=== PATIENT | female | born 1950 | race Caucasian/White ===

== ENCOUNTER → 2019-09-28 11:05 | Outpatient (BNVA) | payer MEDICARE, SELFPAY | PROVIDERS: Family Provider Nurse Practitioner Family; PCP Nurse Practitioner Family; Visit Provider Nurse Practitioner Family | DX: R35.0 Frequency of micturition (principal); N30.01 Acute cystitis with hematuria | CPT/HCPCS: 81003 ==

== ENCOUNTER → 2020-03-06 15:16 | Outpatient (BNVA) | payer MEDICARE, SELFPAY | PROVIDERS: Family Provider Nurse Practitioner Family; PCP Nurse Practitioner Family; Visit Provider Nurse Practitioner Family | DX: M81.0 Age-related osteoporosis without current pathological fracture (principal) | CPT/HCPCS: 36415; 82310 ==

== ENCOUNTER → 2020-03-28 09:40 | Outpatient (BNVA) | payer MEDICARE, SELFPAY | PROVIDERS: Family Provider Nurse Practitioner Family; PCP Nurse Practitioner Family; Visit Provider Nurse Practitioner Family | DX: R30.0 Dysuria (principal); R82.90 Unspecified abnormal findings in urine; N30.01 Acute cystitis with hematuria | CPT/HCPCS: 80053; 81000; 87077; 87086; 87186 ==

== ENCOUNTER → 2020-04-05 08:57 | Outpatient (BNVA) | payer MEDICARE, SELFPAY | PROVIDERS: Family Provider Nurse Practitioner Family; PCP Nurse Practitioner Family; Visit Provider Nurse Practitioner Family | DX: I73.9 Peripheral vascular disease, unspecified (principal); E78.5 Hyperlipidemia, unspecified; I63.9 Cerebral infarction, unspecified; M81.0 Age-related osteoporosis without current pathological fracture | CPT/HCPCS: 80053; 80061; 85025 ==

== ENCOUNTER → 2020-06-08 09:56 | Outpatient (BNVA) | payer SELFPAY | PROVIDERS: Family Provider Nurse Practitioner Family; PCP Nurse Practitioner Family; Visit Provider Nurse Practitioner Family | DX: R30.0 Dysuria (principal); N30.01 Acute cystitis with hematuria | CPT/HCPCS: 80053; 81000 ==

== ENCOUNTER → 2020-06-28 13:44 | Outpatient (BNVA) | payer SELFPAY | PROVIDERS: Family Provider Nurse Practitioner Family; PCP Nurse Practitioner Family; Visit Provider Nurse Practitioner Family | DX: R30.0 Dysuria (principal); R82.90 Unspecified abnormal findings in urine; N30.01 Acute cystitis with hematuria; Z68.23 Body mass index [BMI] 23.0-23.9, adult | CPT/HCPCS: 80053; 81000; 87077; 87086; 87184 ==

== ENCOUNTER → 2020-07-05 09:39 | Outpatient (BNVA) | payer SELFPAY | PROVIDERS: Family Provider Nurse Practitioner Family; PCP Nurse Practitioner Family; Referring Provider Nurse Practitioner Family; Visit Provider Nurse Practitioner Family | DX: N30.01 Acute cystitis with hematuria (principal) | CPT/HCPCS: 81003 ==

== ENCOUNTER → 2020-10-09 09:48 | Outpatient (BNVA) | payer SELFPAY | PROVIDERS: Family Provider Nurse Practitioner Family; PCP Nurse Practitioner Family; Visit Provider Nurse Practitioner Family | DX: M81.0 Age-related osteoporosis without current pathological fracture (principal) | CPT/HCPCS: 82310 ==

== ENCOUNTER → 2021-04-11 09:53 | Outpatient (BNVA) | payer SELFPAY | PROVIDERS: Family Provider Nurse Practitioner Family; PCP Nurse Practitioner Family; Visit Provider Nurse Practitioner Family | DX: E78.5 Hyperlipidemia, unspecified (principal); I73.9 Peripheral vascular disease, unspecified; M81.0 Age-related osteoporosis without current pathological fracture; Z86.73 Personal history of transient ischemic attack (TIA), and cerebral infarction without residual deficits | CPT/HCPCS: 80053; 80061 ==

== ENCOUNTER 2021-05-02 13:49 | Outpatient (CLI) | payer SELFPAY ==
--- NOTE | 2021-05-02 15:15 | XR_ITS ---
WS: [id number] DEXA (DUAL ENERGY X-RAY ABSORPTIOMETRY) Bone mineral density was performed using a [employer] machine. HISTORY: Z78.0 - Asymptomatic menopausal state COMPARISON: 02/03/2019 Lumbar spine BMD (L1-L4): 1.077 T score: -1.0 Z score: 0.8 Total hip BMD: Left: 0.721 g/cm2. T score: -2.3 Z score: -0.7 Right: 0.701 g/cm2. T score: -2.4 Z score: -0.9 10 year probability of a major osteoporotic fracture is 26%. Compared to the prior study from 02/03/2019. Lumbar spine bone mineral density has increased by 0.6%. Bilateral hips bone mineral density has increased by 3.0%. XR/XR DEXA axial skeleton* [id number] IMPRESSION: OSTEOPENIA based upon the WHO classification for females. Significant increase in bone mineral density within the hips since the prior study.
== END 2021-05-02 13:50 | disposition home or self-care (01) ==
PROVIDERS: PCP Nurse Practitioner Family; Visit Provider Nurse Practitioner Family
DX: Z78.0 Asymptomatic menopausal state (principal); M85.88 Other specified disorders of bone density and structure, other site
CPT/HCPCS: 77080

== ENCOUNTER 2021-07-10 10:09 | Emergency (ER) | payer SELFPAY ==
[2021-07-10 10:15] VITALS: BP 157/86; PULSE 88; RESP 18; TEMP 36.8; O2SAT 100; BMI 22.4
--- NOTE | 2021-07-10 10:42 | ED_ITS ---
Documented by User: ITALIA Osuna 07/10/21 12:27 HPI - Extremity Problem General: Chief complaint: Extremity Problem,Nontraumatic Stated complaint: POSSIBLE BLOOD CLOT IN RLE Time Seen by Provider: 07/10/21 10:15 History of Present Illness: HPI Narrative: Patient arrived via ambulance with complaint of right leg tingling intermittently since last night. Patient has history of DVT and she thought this might be the start of a DVT. She denies any other problems presently. Patient currently on blood thinners and clot inhibitor. MD Complaint: other (Right lower extremety is tingling.) Onset (ago): hour(s) Pain Consistency: intermittent Location: right and lower extremity Severity scale (1-10): 1 Quality: other (Tingling) Radiation: none Relieving factors: nothing Exacerbating factors: nothing Associated symptoms: Reports no associated symptoms; Deny chest pain, fever(s) or rash Review of Systems Const: Denies: fever(s), chills or body aches Eyes: Denies: change in vision or blurry vision ENMT: Denies: throat pain or nasal congestion Card: Denies: chest pain or dyspnea on exertion Resp: Denies: dyspnea, productive cough or non-productive cough GI: Denies: abdominal pain, nausea or vomiting Musc: Reports: extremity pain and other (Right lower extremity has had some tingling and intermittent numbness over ) Skin/Breast: Denies: rash Neuro: Denies: headache(s) Psych: Denies: anxiety or depression Samuel/Lymph: Denies: easy bruising PFSH ED PFSH: Medical History Age-related osteoporosis without current pathological fracture CVA (cerebral vascular accident) History of carotid stenosis History of stroke Hyperlipidemia Surgical History History of bladder surgery History of carpal tunnel surgery History of heart surgery History of hysterectomy Social History Smoking and tobacco status: current every day smoker (3 or 4 a day) cigarettes Packs smoked per day: 0.5 Alcohol intake: never Marital status: Single Current occupational status: retired Physical Exam Const: COMMON NORMALS: no acute distress, average body habitus and patient oriented x3 HENMT: COMMON NORMALS: normocephalic HEAD & SCALP: normal to inspection and normocephalic FACE & SINUS: normal facial exam Eye: COMMON NORMALS: conjunctivae normal GENERAL EYE: appearance normal, both eyes and all related structures CONJUNCTIVA: Yes conjunctivae normal Neck/C-Spine: COMMON NORMALS: no JVD Chest: COMMONS NORMALS: normal inspection of the chest Resp: COMMON NORMALS: normal respiratory effort and clear to auscultation bilaterally AUSCULTATION: clear to auscultation bilaterally Cardio: COMMON NORMALS: no JVD, regular rate and regular rhythm RATE: regular rate RHYTHM: regular rhythm GI: COMMON NORMALS: Normal to inspection, nondistended, normoactive bowel sounds present RECTAL EXAM: No heme positive stool and External hemorrhoid(s) present Extremity: COMMON NORMALS: normal to inspection and full ROM RIGHT LOWER EXTREMITY: Yes lower leg (No erythema, tenderness, swelling. Neurovascular intact.) Neuro: COMMON NORMALS: patient oriented x3 Course Vital Signs: Vital signs: Vital Signs Temperature 98.6 F 07/10/21 12:25 Pulse Rate 73 07/10/21 12:25 Respiratory Rate 17 07/10/21 12:25 Blood Pressure 138/58 07/10/21 12:25 Pulse Oximetry 92 07/10/21 12:25 MDM - Extremity (Nontraumatic) MDM Narrative: Medical decision making narrative: Patient presents via ambulance with complaint of right foot numbness tingling been going on since last night and concerned about a blood clot. Patient currently on blood thinners and Plavix. Patient's exam of right lower extremity showed good distal neurovascular status no evidence of a blood clot with no redness swelling or tenderness to the calf or the leg. Patient does have a history neuropathy and she is taking gabapentin for that. Labs found that she was anemic and further testing revealed that she has iron deficiency. Guaiac stool was negative for blood. Patient has no history of bleeding disorder or vomiting blood or passing black tarry stools. Patient is diabetic and states she was not aware she is diabetic and does not check her blood sugars. In all she showed 4+ sugar in her urine her blood glucose was normal. Patient is currently on Farxiga daily for her diabetes. Care and case was discussed with Dr. Cedeno. Patient is discharged from the ER with strict instructions to follow-up with her primary care provider in an next week or 2 Lab Data: Labs: Lab Results 07/10/21 07/10/21 07/10/21 10:52 10:52 10:52 WBC 8.0 10^3/uL 10^3/ uL (4.0-10.0) RBC 2.93 10^6/uL L 10 ^6/uL (4.1-5.3) Hgb 9.3 g/dL L g/dL (11.5-15.3) Hct 29.9 % L % (37.0-47.0) MCV 102.0 fl H fl (81-99) MCH 31.7 pg pg (28.0-34.0) MCHC 31.1 g/dL g/dL (30.0-36.0) RDW 14.8 % % (12.1-15.1) Plt Count 254 10^3/cmm 10^3 /cmm (130-400) MPV 10.0 fL fL (7.4-10.4) Neut % (Auto) 62.4 % % Lymph % (Auto) 30.3 % % [place] % (Auto) 5.9 % % Eos % (Auto) 0.4 % % Baso % (Auto) 0.6 % % Neut # (Auto) 4.98 10^3/uL 10^3 /uL (1.8-7.7) Lymph # (Auto) 2.4 10^3/uL 10^3/ uL (0.8-4.8) [place] # (Auto) 0.5 10^3/uL 10^3/ uL (0.2-0.9) Eos # (Auto) 0.0 10^3/uL 10^3/ uL (0.0-0.8) Baso # (Auto) 0.1 10^3/uL 10^3/ uL (0.0-0.1) Nucleated RBC % (a uto) 0 % % Nucleated RBCs # 0.0 /100WBC /100W BC PT INR Sodium Cancelled 132 mmol/L L mmol /L (136-145) Potassium Cancelled 4.2 mmol/L mmol/L (3.5-5.1) Chloride Cancelled 101 mmol/L mmol/L (98-107) Carbon Dioxide Cancelled 21 mmol/L L mmol/ L (22-29) Anion Gap Cancelled 14.2 (5-19) BUN Cancelled 11 mg/dL mg/dL (8-23) Creatinine Cancelled 1.1 mg/dL H mg/dL (0.5-0.9) GFR Calculation Cancelled 49.1 mL/min L mL/ min (90-130) Glucose Cancelled 89 mg/dL mg/dL (65-115) Calculated Osmolal ity Cancelled 273 mOsm/kg L mOs m/kg (285-295) Calcium Cancelled 9.3 mg/dL mg/dL (8.5-10.5) Iron TIBC % Saturation Unsat Iron Binding Ferritin Total Bilirubin 0.2 mg/dL mg/dL (0.15-1.2) AST 14 U/L U/L (0-32) ALT 9 U/L U/L (0-33) Alkaline Phosphata se 47 IU/L IU/L (35-105) Total Protein 6.7 g/dL g/dL (6.6-8.7) Albumin 4.0 g/dL g/dL (3.5-5.2) Globulin 2.7 g/dL g/dL (1.3-4.6) Urine Color Urine Appearance Urine pH Ur Specific Gravit y Urine Protein Urine Glucose (UA) Urine Ketones Urine Blood Urine Nitrate Urine Bilirubin Urine Urobilinogen Ur Leukocyte Brittany ase Urine RBC Urine WBC Ur Squamous Epith Cells Amorphous Sediment Urine Bacteria Urine Mucus 07/10/21 07/10/21 07/10/21 10:52 11:24 11:25 WBC RBC Hgb Hct MCV MCH MCHC RDW Plt Count MPV Neut % (Auto) Lymph % (Auto) [place] % (Auto) Eos % (Auto) Baso % (Auto) Neut # (Auto) Lymph # (Auto) [place] # (Auto) Eos # (Auto) Baso # (Auto) Nucleated RBC % (a uto) Nucleated RBCs # PT 14.40 SECONDS SEC ONDS (12.1-14.9) INR 1.09 (0.8-1.2) Sodium Potassium Chloride Carbon Dioxide Anion Gap BUN Creatinine GFR Calculation Glucose Calculated Osmolal ity Calcium Iron 21 ug/dL L ug/dL (37-145) TIBC 358 mcg/dl mcg/dl % Saturation 5.8 % L % (20-50) Unsat Iron Binding 337 ug/dL ug/dL (112-347) Ferritin 16 ng/mL ng/mL (15-150) Total Bilirubin AST ALT Alkaline Phosphata se Total Protein Albumin Globulin Urine Color Straw (Yellow) Urine Appearance Clear (CLEAR) Urine pH 5 (5-7) Ur Specific Gravit y 1.005 (1.005-1.030) Urine Protein Neg (Negative) Urine Glucose (UA) 4+ H (Normal) Urine Ketones Negative (Negative) Urine Blood Neg (Negative) Urine Nitrate Negative (Negative) Urine Bilirubin Neg (Negative) Urine Urobilinogen Norm mg/dL mg/dL (Negative) Ur Leukocyte Brittany ase Trace H (Negative) Urine RBC None /hpf /hpf (0-2) Urine WBC 10-15 /hpf H /hpf (0-5) Ur Squamous Epith Cells 10-15 /hpf H /hpf (0-5) Amorphous Sediment Not Reportable Urine Bacteria 1+ /hpf H /hpf (NONE) Urine Mucus Trace /hpf /hpf Discharge Plan Discharge Patient Disposition: Home Clinical Impression: Diabetic neuropathy Qualifiers: Diabetes mellitus type: type 2 Diabetes mellitus complication detail: diabetic polyneuropathy Qualified Code(s): E11.42 - Type 2 diabetes mellitus with diabetic polyneuropathy Anemia Qualifiers: Anemia type: iron deficiency Iron deficiency anemia type: unspecified iron deficiency Qualified Code(s): D50.9 - Iron deficiency anemia, unspecified Condition: Stable Prescriptions: New Feosol 325 mg (65 mg iron) tablet 325 mg PO DAILY Qty: 30 RF: 0 No Action meclizine 25 mg tablet 25 mg PO DAILY PRN (Reason: Dizziness) RF: 0 Eliquis 5 mg tablet 5 mg PO BID RF: 0 gabapentin 300 mg Capsule 300 mg PO TID PRN (Reason: Pain) RF: 0 oxycodone 5 mg tablet 5 mg PO Q4H PRN (Reason: Pain) RF: 0 clopidogrel 75 mg tablet 75 mg PO QAM RF: 0 amitriptyline 100 mg tablet 100 mg PO BEDTIME RF: 0 Crestor 40 mg tablet 40 mg PO BEDTIME RF: 0 Prolia 60 mg/mL syringe 60 mg SUBCUT .EVERY 6 MONTHS RF: 0 Farxiga 10 mg tablet 10 mg PO QAM RF: 0 Discharge Orders: Discharge ED (Routine); Ordered 07/10/21 Ordered By: Mainor Galaviz Referrals: Janeen Aj NP [Primary Care Provider] - Discharge Diet: As Directed Discharge Activity: Increase activity as tolerated Patient Instructions: Diabetic Peripheral Neuropathy (ED), Anemia (ED) Activity Restrictions/Additional Instructions: Follow-up with medical provider as directed. Take medications as prescribed. Return to the ER or your medical provider if condition worsens. Please read and understand discharge instructions. If any questions ask please. Please follow- up with your primary care provider and have further lab studies done to check on your anemia. Coding Level of Care Code ED Manager Product Design for Chg Fwd Exam Comprehensive Documented by User: Ever Sexton MD 07/11/21 23:02 HPI - Extremity Problem General: Chief complaint: Extremity Problem,Nontraumatic Stated complaint: POSSIBLE BLOOD CLOT IN RLE Time Seen by Provider: 07/10/21 10:15 PFSH ED PFSH: Medical History Age-related osteoporosis without current pathological fracture CVA (cerebral vascular accident) History of carotid stenosis History of stroke Hyperlipidemia Surgical History History of bladder surgery History of carpal tunnel surgery History of heart surgery History of hysterectomy Social History Smoking and tobacco status: current every day smoker (3 or 4 a day) cigarettes Packs smoked per day: 0.5 Alcohol intake: never Marital status: Single Current occupational status: retired Course Vital Signs: Vital signs: Vital Signs Temperature 98.6 F 07/10/21 12:25 Pulse Rate 73 07/10/21 12:25 Respiratory Rate 17 07/10/21 12:25 Blood Pressure 138/58 07/10/21 12:25 Pulse Oximetry 92 07/10/21 12:25 MDM - Extremity (Nontraumatic) MDM Narrative: Medical decision making narrative: I discussed this case with Mainor Sexton MD Emergency Medicine Lab Data: Labs: Lab Results 07/10/21 07/10/21 07/10/21 10:52 10:52 10:52 WBC 8.0 10^3/uL 10^3/ uL (4.0-10.0) RBC 2.93 10^6/uL L 10 ^6/uL (4.1-5.3) Hgb 9.3 g/dL L g/dL (11.5-15.3) Hct 29.9 % L % (37.0-47.0) MCV 102.0 fl H fl (81-99) MCH 31.7 pg pg (28.0-34.0) MCHC 31.1 g/dL g/dL (30.0-36.0) RDW 14.8 % % (12.1-15.1) Plt Count 254 10^3/cmm 10^3 /cmm (130-400) MPV 10.0 fL fL (7.4-10.4) Neut % (Auto) 62.4 % % Lymph % (Auto) 30.3 % % [place] % (Auto) 5.9 % % Eos % (Auto) 0.4 % % Baso % (Auto) 0.6 % % Neut # (Auto) 4.98 10^3/uL 10^3 /uL (1.8-7.7) Lymph # (Auto) 2.4 10^3/uL 10^3/ uL (0.8-4.8) [place] # (Auto) 0.5 10^3/uL 10^3/ uL (0.2-0.9) Eos # (Auto) 0.0 10^3/uL 10^3/ uL (0.0-0.8) Baso # (Auto) 0.1 10^3/uL 10^3/ uL (0.0-0.1) Nucleated RBC % (a uto) 0 % % Nucleated RBCs # 0.0 /100WBC /100W BC PT INR Sodium Cancelled 132 mmol/L L mmol /L (136-145) Potassium Cancelled 4.2 mmol/L mmol/L (3.5-5.1) Chloride Cancelled 101 mmol/L mmol/L (98-107) Carbon Dioxide Cancelled 21 mmol/L L mmol/ L (22-29) Anion Gap Cancelled 14.2 (5-19) BUN Cancelled 11 mg/dL mg/dL (8-23) Creatinine Cancelled 1.1 mg/dL H mg/dL (0.5-0.9) GFR Calculation Cancelled 49.1 mL/min L mL/ min (90-130) Glucose Cancelled 89 mg/dL mg/dL (65-115) Calculated Osmolal ity Cancelled 273 mOsm/kg L mOs m/kg (285-295) Calcium Cancelled 9.3 mg/dL mg/dL (8.5-10.5) Iron TIBC % Saturation Unsat Iron Binding Ferritin Total Bilirubin 0.2 mg/dL mg/dL (0.15-1.2) AST 14 U/L U/L (0-32) ALT 9 U/L U/L (0-33) Alkaline Phosphata se 47 IU/L IU/L (35-105) Total Protein 6.7 g/dL g/dL (6.6-8.7) Albumin 4.0 g/dL g/dL (3.5-5.2) Globulin 2.7 g/dL g/dL (1.3-4.6) Urine Color Urine Appearance Urine pH Ur Specific Gravit y Urine Protein Urine Glucose (UA) Urine Ketones Urine Blood Urine Nitrate Urine Bilirubin Urine Urobilinogen Ur Leukocyte Brittany ase Urine RBC Urine WBC Ur Squamous Epith Cells Amorphous Sediment Urine Bacteria Urine Mucus 07/10/21 07/10/21 07/10/21 10:52 11:24 11:25 WBC RBC Hgb Hct MCV MCH MCHC RDW Plt Count MPV Neut % (Auto) Lymph % (Auto) [place] % (Auto) Eos % (Auto) Baso % (Auto) Neut # (Auto) Lymph # (Auto) [place] # (Auto) Eos # (Auto) Baso # (Auto) Nucleated RBC % (a uto) Nucleated RBCs # PT 14.40 SECONDS SEC ONDS (12.1-14.9) INR 1.09 (0.8-1.2) Sodium Potassium Chloride Carbon Dioxide Anion Gap BUN Creatinine GFR Calculation Glucose Calculated Osmolal ity Calcium Iron 21 ug/dL L ug/dL (37-145) TIBC 358 mcg/dl mcg/dl % Saturation 5.8 % L % (20-50) Unsat Iron Binding 337 ug/dL ug/dL (112-347) Ferritin 16 ng/mL ng/mL (15-150) Total Bilirubin AST ALT Alkaline Phosphata se Total Protein Albumin Globulin Urine Color Straw (Yellow) Urine Appearance Clear (CLEAR) Urine pH 5 (5-7) Ur Specific Gravit y 1.005 (1.005-1.030) Urine Protein Neg (Negative) Urine Glucose (UA) 4+ H (Normal) Urine Ketones Negative (Negative) Urine Blood Neg (Negative) Urine Nitrate Negative (Negative) Urine Bilirubin Neg (Negative) Urine Urobilinogen Norm mg/dL mg/dL (Negative) Ur Leukocyte Brittany ase Trace H (Negative) Urine RBC None /hpf /hpf (0-2) Urine WBC 10-15 /hpf H /hpf (0-5) Ur Squamous Epith Cells 10-15 /hpf H /hpf (0-5) Amorphous Sediment Not Reportable Urine Bacteria 1+ /hpf H /hpf (NONE) Urine Mucus Trace /hpf /hpf Discharge Plan Discharge Patient Disposition: Home Clinical Impression: Diabetic neuropathy Qualifiers: Diabetes mellitus type: type 2 Diabetes mellitus complication detail: diabetic polyneuropathy Qualified Code(s): E11.42 - Type 2 diabetes mellitus with diabetic polyneuropathy Anemia Qualifiers: Anemia type: iron deficiency Iron deficiency anemia type: unspecified iron deficiency Qualified Code(s): D50.9 - Iron deficiency anemia, unspecified Condition: Stable Prescriptions: New Feosol 325 mg (65 mg iron) tablet 325 mg PO DAILY Qty: 30 RF: 0 No Action meclizine 25 mg tablet 25 mg PO DAILY PRN (Reason: Dizziness) RF: 0 Eliquis 5 mg tablet 5 mg PO BID RF: 0 gabapentin 300 mg Capsule 300 mg PO TID PRN (Reason: Pain) RF: 0 oxycodone 5 mg tablet 5 mg PO Q4H PRN (Reason: Pain) RF: 0 clopidogrel 75 mg tablet 75 mg PO QAM RF: 0 amitriptyline 100 mg tablet 100 mg PO BEDTIME RF: 0 Crestor 40 mg tablet 40 mg PO BEDTIME RF: 0 Prolia 60 mg/mL syringe 60 mg SUBCUT .EVERY 6 MONTHS RF: 0 Farxiga 10 mg tablet 10 mg PO QAM RF: 0 Discharge Orders: Discharge ED (Routine); Ordered 07/10/21 Ordered By: Mainor Galaviz Referrals: Janeen Aj NP [Primary Care Provider] - Discharge Diet: As Directed Discharge Activity: Increase activity as tolerated Patient Instructions: Diabetic Peripheral Neuropathy (ED), Anemia (ED) Activity Restrictions/Additional Instructions: Follow-up with medical provider as directed. Take medications as prescribed. Return to the ER or your medical provider if condition worsens. Please read and understand discharge instructions. If any questions ask please. Please follow- up with your primary care provider and have further lab studies done to check on your anemia. Coding Level of Care Code ED Manager Product Design for Chg Fwd Exam Comprehensive
[2021-07-10 10:44] VITALS: BP 146/56; PULSE 73; RESP 17; TEMP 36.8; O2SAT 98
[2021-07-10 11:04] LABS: Basophils # 0.1 10^3/uL (0.0-0.1); Basophils % 0.6 %; Eosinophils % 0.4 %; Hematocrit 29.9 % (37.0-47.0); Hemoglobin 9.3 g/dL (11.5-15.3); Lymphocytes # 2.4 10^3/uL (0.8-4.8); Lymphocytes % 30.3 %; Mean Corpuscular HGB Conc 31.1 g/dL (30.0-36.0); Mean Corpuscular Hemoglobin 31.7 pg (28.0-34.0); Monocytes # 0.5 10^3/uL (0.2-0.9); Monocytes % 5.9 %; Neutrophils # 4.98 10^3/uL (1.8-7.7); Neutrophils % 62.4 %; Nucleated Red Blood Cells % 0 %; Platelet Count 254 10^3/cmm (130-400); Red Blood Count 2.93 10^6/uL (4.1-5.3); Red Cell Distribution Width 14.8 % (12.1-15.1)
[2021-07-10 11:40] LABS: Add Urine Microscopic? YES; Bilirubin Urine Neg (Negative); Blood Urine Neg (Negative); Glucose Urine UA 4+ (Normal); Ketones Urine Negative (Negative); Leukocyte Esterase Urine Trace (Negative); Nitrate Urine Negative (Negative); Protein Urine Neg (Negative); Specific Gravity, Urine 1.005 (1.005-1.030); Urine Appearance Clear (CLEAR); Urine Color Straw (Yellow); Urobilinogen Urine Norm (Negative); pH Urine 5 (5-7)
[2021-07-10 11:42] LABS: Alanine Aminotransferase 9 U/L (0-33); Alkaline Phosphatase 47 IU/L (35-105); Anion Gap 14.2 (5-19); Aspartate Amino Transferase 14 U/L (0-32); Blood Urea Nitrogen 11 mg/dL (8-23); Calcium 9.3 mg/dL (8.5-10.5); Carbon Dioxide 21 mmol/L (22-29); Chloride 101 mmol/L (98-107); Globulin 2.7 g/dL (1.3-4.6); Glomerular Filtration Rate 49.1 mL/min (90-130); Glucose 89 mg/dL (65-115); Osmolality Calculated 273 mOsm/kg (285-295); Potassium 4.2 mmol/L (3.5-5.1); Sodium 132 mmol/L (136-145); Total Bilirubin 0.2 mg/dL (0.15-1.2); Total Protein 6.7 g/dL (6.6-8.7)
[2021-07-10 11:53] LABS: Add Urine Culture? No; Bacteria Urine 1+ /hpf; Mucus Urine TRACE /hpf
[2021-07-10 12:03] LABS: INR 1.09 (0.8-1.2)
[2021-07-10 12:04] LABS: Ferritin 16 ng/mL (15-150); Iron 21 ug/dL (37-145); Percent Saturation 5.8 % (20-50); Total Iron Binding Capacity 358 mcg/dl; Unsaturated Iron Binding 337 ug/dL (112-347)
[2021-07-10 12:25] VITALS: BP 138/58; PULSE 73; RESP 17; TEMP 37; O2SAT 92
== END 2021-07-10 12:27 | disposition home or self-care (01) ==
PROVIDERS: Emergency Provider Nurse Practitioner Family; PCP Nurse Practitioner Family
DX: E11.42 Type 2 diabetes mellitus with diabetic polyneuropathy (principal); D50.9 Iron deficiency anemia, unspecified; E78.5 Hyperlipidemia, unspecified; F17.210 Nicotine dependence, cigarettes, uncomplicated; M81.0 Age-related osteoporosis without current pathological fracture; Z79.01 Long term (current) use of anticoagulants; Z79.02 Long term (current) use of antithrombotics/antiplatelets; Z79.84 Long term (current) use of oral hypoglycemic drugs; Z79.899 Other long term (current) drug therapy; Z86.73 Personal history of transient ischemic attack (TIA), and cerebral infarction without residual deficits
CPT/HCPCS: 80053; 81001; 82728; 83540; 83550; 85025; 85610; 99283

== ENCOUNTER → 2021-07-17 09:39 | Outpatient (BNVA) | payer SELFPAY | PROVIDERS: PCP Nurse Practitioner Family; Visit Provider Nurse Practitioner Family | DX: R30.0 Dysuria (principal) | CPT/HCPCS: 81000 ==

== ENCOUNTER 2021-08-05 16:25 | Emergency (ER) | payer SELFPAY ==
[2021-08-05 17:02] VITALS: BP 179/73; PULSE 73; RESP 16; TEMP 36.8; O2SAT 99; BMI 22.8
--- NOTE | 2021-08-05 19:57 | ECG_ITS ---
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
--- NOTE | 2021-08-05 19:58 | USCV_ITS ---
Angela Fontana Age: 71 Gender: F : 1950 Exam Date: 08/05/2021 21:28 Ordering Phys: Randell Thomason MD Technologist: Exam Location: [facility]_ Indication: rt leg pain PROCEDURES: Venous duplex imaging was performed in only the right lower extremity. The following venous structures were evaluated: common femoral vein, profunda vein, proximal portion of the greater saphenous vein, superficial femoral vein, and the popliteal vein. In addition, the posterior tibial and peroneal trunk were evaluated. On the right side, the common femoral, superficial femoral, profunda femoral, popliteal, posterior tibial, greater saphenous veins and the peroneal trunk were identified and interrogated in the standard fashion. These veins were found to be easily compressible with spontaneous blood flow. No evidence of insufficiency or thrombus noted. FINDINGS: Normal 2-D Doppler and augmentation and compressibility throughout the lower extremity venous structures. Additional imaging through the proximal calf veins also reveals no thrombus. Limited evaluation of the greater saphenous vein is patent with no thrombus.. The veins were found to be easily compressible with spontaneous blood flow. Non pulsatile flow pattern. CONCLUSIONS No evidence of DVT in the above-mentioned identifiable veins. Dr Hanna Alvarez MD [facility] (Electronically Signed) Final Date: 08 August 2021 08:51 S
--- NOTE | 2021-08-05 20:08 | W.ED.GENADLT ---
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 Patient tells me that she was sitting down earlier today around 11 AM when she attempted to stand up and felt very lightheaded and nearly passed out. Patient denies any LOC, chest pain, associate shortness of breath, or palpitation or lightheadedness. Shortly after patient took her first step and all noticed that her right leg gave way. Patient denies any fall or injury. Patient was able to catch herself prior to the fall. Patient denies twisting her ankle or focal complaints of pain. Patient denies any lower extremity swelling, numbness, tingling sensation. Patient has not had a prior episode of feeling her right leg gave out. Patient is compliant with her anticoagulation, does not think she has a blood clot in her right leg. Patient has no other episodes of lightheadedness in the last few days. Patient denies any diarrhea, melena/hematochezia, signs of dehydration, decreased p.o. intake, or diarrhea Onset: 11am Duration:once Location:home Severity:moderate Review of Systems Narrative: Constitutional: No fever, no chills. HEENT: No vision changes CV: No chest pain, no palpitations PULM: no cough, no dyspnea. GI: No abdominal pain, no N/V/D. : No dysuria MSKEL: No muscle pain, +R leg giving out SKIN: No new rashes, no lesions. NEURO: No headache, no focal weakness. +light-headednes HEME: No visible bruises PSYCH: Normal mood PFSH ED PFSH: Medical History Age-related osteoporosis without current pathological fracture CVA (cerebral vascular accident) History of carotid stenosis History of stroke Hyperlipidemia Surgical History History of bladder surgery History of carpal tunnel surgery History of heart surgery History of hysterectomy Social History (Updated 07/17/21 @ 09:53 by Chula Johnson LPN) Smoking and tobacco status: current every day smoker (not daily) cigarettes Alcohol intake: never Marital status: Single Current occupational status: retired Physical Exam Narrative: EXAM NARRATIVE: Head: Atraumatic Eyes: PERRL, conjunctiva without injection ENT: Mucous membrane moist NECK: Supple, ROM intact LUNGS: LCTAB, no crackles/rhonchi CV: RRR ABDOMEN: Soft, nontender in all quadrants EXTREMITY: Normal ROM, + no compartment tightness, and the right tib-fib, no Homans' sign, 2+ DP/DP pulses on the right side, no focal tenderness palpation the right lower extremity, cap refill less than 3 seconds, sensation intact in the right lower extremity SKIN: No rash or erythema NEURO: A&O x 3. Sensation intact. Motor strength 5/5 all extremeties. Kcikgh-ix-uwed intact. No pronator drift. Normal gait w/o ataxia. No nystagmus noted. CN 2-12 intact as follows: CN2: VIsion intact, pupils equal, bilaterally reactive to light CN3: EOMI CN4: Down and lateral EOMI CN5: V1,V2,V3 w/ sensation intact to LT CN6: Lateral eye movements intact CN7: Symetric smile CN8: Pt hears finger rubbing equally b/l CN9/10: Pt elevates posterior palate equally. No uvular deviation CN11: Shoulder shrug w/ 5/5 strength b/l CN12: Tongue protrudes equally and mobile bidrectionally ======= Mental status? Awake, alert, and oriented to self, year, month, location, and situation.? Following simple axial and appendicular commands.? Has appropriate fund of knowledge, comprehension, and insight.? Able to recall and understands pertinent aspects of medical history and current treatment status.? ? Language? Speech is fluent without word-finding difficulties.? Intact naming, expression, entry level receptionist, and repetition.? ? Cranial nerves? 2,3,4,6: PERRL, EOMI with no nystagmus. 5: Intact sensation to light touch, symmetric? 7: Smile symmetrical, no facial droop.? 8: Hearing grossly intact.? 9,10: Normal palate movement.? 11: Normal strength in trapezius bilaterally 12: Tongue protrudes midline.? ? Motor examination? Normal bulk & tone. Strength as follows (R/L): Delts (5/5), Biceps (5/5), Triceps (5/5), Wrist ext (5/5), hip flexors (5/5), plantarflexors (5/5), dorsiflexors (5/5). ? Sensation? Light Touch: Grossly intact and equal in upper and lower extremities bilaterally? Romberg: Negative.? Distal joint position sense intact ? Coordination? Hmgovy-yy-bbhl-finger movements intact without dysmetria or past-pointing.? Rapid fingertaps: preserved amplitude without decriment.? No tremor, myoclonus or truncal ataxia.? ? Gait/stance? Steady, normal narrow base gait with appropriate arm swing and turning.? Tandem gait without hesitation or loss of balance. PSYCH: Normal mood and affect Course Vital Signs: Vital signs: Vital Signs Temperature 98.3 F 08/05/21 17:02 Pulse Rate 70 08/05/21 23:13 Respiratory Rate 14 08/05/21 23:13 Blood Pressure 170/96 08/05/21 23:13 Pulse Oximetry 96 08/05/21 23:13 [facility] - General Adult Lab Data: Labs: Lab Results 08/05/21 08/05/21 08/05/21 20:57 20:57 20:57 WBC 7.3 10^3/uL 10^3/ uL (4.0-10.0) RBC 2.47 10^6/uL L 10 ^6/uL (4.1-5.3) Hgb 7.6 g/dL L g/dL (11.5-15.3) Hct 24.7 % L % (37.0-47.0) MCV 100.0 fl H fl (81-99) MCH 30.8 pg pg (28.0-34.0) MCHC 30.8 g/dL g/dL (30.0-36.0) RDW 15.5 % H % (12.1-15.1) Plt Count 244 10^3/cmm 10^3 /cmm (130-400) MPV 10.5 fL H fL (7.4-10.4) Neut % (Auto) 47.5 % % Lymph % (Auto) 44.9 % % [place] % (Auto) 5.8 % % Eos % (Auto) 1.0 % % Baso % (Auto) 0.5 % % Neut # (Auto) 3.46 10^3/uL 10^3 /uL (1.8-7.7) Lymph # (Auto) 3.3 10^3/uL 10^3/ uL (0.8-4.8) [place] # (Auto) 0.4 10^3/uL 10^3/ uL (0.2-0.9) Eos # (Auto) 0.1 10^3/uL 10^3/ uL (0.0-0.8) Baso # (Auto) 0.0 10^3/uL 10^3/ uL (0.0-0.1) Nucleated RBC % (a uto) 0 % % Nucleated RBCs # 0.0 /100WBC /100W BC Sodium 142 mmol/L mmol/L (136-145) Potassium 3.5 mmol/L mmol/L (3.5-5.1) Chloride 117 mmol/L H mmol /L (98-107) Carbon Dioxide 16 mmol/L L mmol/ L (22-29) Anion Gap 12.5 (5-19) BUN 14 mg/dL mg/dL (8-23) Creatinine 0.9 mg/dL mg/dL (0.5-0.9) GFR Calculation 61.9 mL/min L mL/ min (90-130) Glucose 70 mg/dL mg/dL (65-115) Calculated Osmolal ity 293 mOsm/kg mOsm/ kg (285-295) Calcium 7.6 mg/dL L mg/dL (8.5-10.5) Troponin T Gen 5 n g/L 12 ng/L H ng/L (0-10) 08/05/21 23:02 WBC RBC Hgb Hct MCV MCH MCHC RDW Plt Count MPV Neut % (Auto) Lymph % (Auto) [place] % (Auto) Eos % (Auto) Baso % (Auto) Neut # (Auto) Lymph # (Auto) [place] # (Auto) Eos # (Auto) Baso # (Auto) Nucleated RBC % (a uto) Nucleated RBCs # Sodium Potassium Chloride Carbon Dioxide Anion Gap BUN Creatinine GFR Calculation Glucose Calculated Osmolal ity Calcium Troponin T Gen 5 n g/L 14 ng/L H ng/L (0-10) Discharge Plan Discharge Patient Disposition: Home Clinical Impression: Light headedness, Anemia Condition: Stable Prescriptions: No Action meclizine 25 mg tablet 25 mg PO DAILY PRN (Reason: Dizziness) RF: 0 Eliquis 5 mg tablet 5 mg PO BID RF: 0 amitriptyline 100 mg tablet 100 mg PO BEDTIME Qty: 90 RF: 3 gabapentin 300 mg Capsule 300 mg PO TID PRN (Reason: Pain) RF: 0 oxycodone 5 mg tablet 5 mg PO Q4H PRN (Reason: Pain) RF: 0 clopidogrel 75 mg tablet 75 mg PO QAM RF: 0 Crestor 40 mg tablet 40 mg PO BEDTIME RF: 0 Prolia 60 mg/mL syringe 60 mg SUBCUT .EVERY 6 MONTHS RF: 0 Farxiga 10 mg tablet 10 mg PO QAM RF: 0 Feosol 325 mg (65 mg iron) tablet 325 mg PO DAILY Qty: 30 RF: 0 Discharge Orders: Discharge ED (Routine); Ordered 08/05/21 Ordered By: Tony Becerra Referrals: Janeen Aj LEAD OPERATOR [Primary Care Provider] - Discharge Diet: Advance as tolerated Discharge Activity: Resume usual activity Patient Instructions: Lightheadedness (ED) Activity Restrictions/Additional Instructions: Come back to the emergency room for further episodes of lightheadedness, fever chills, chest pain/ dyspnea, pain, or any new concerning complaints. Follow up with your primary doctor by friday for a repeat blood count, as your blood count is a bit low. Coding Level of Care Code ED Head Of English for Chg Fwd Documented by User: Tony Becerra DO 08/05/21 23:53 HPI - General Adult General: Chief complaint: Dizziness Stated complaint: DIZZY Time Seen by Provider: 08/05/21 19:38 PFSH ED PFSH: Medical History Age-related osteoporosis without current pathological fracture CVA (cerebral vascular accident) History of carotid stenosis History of stroke Hyperlipidemia Surgical History History of bladder surgery History of carpal tunnel surgery History of heart surgery History of hysterectomy Social History (Updated 07/17/21 @ 09:53 by Chula Johnson LPN) Smoking and tobacco status: current every day smoker (not daily) cigarettes Alcohol intake: never Marital status: Single Current occupational status: retired Course Vital Signs: Vital signs: Vital Signs Temperature 98.3 F 08/05/21 17:02 Pulse Rate 70 08/05/21 23:13 Respiratory Rate 14 08/05/21 23:13 Blood Pressure 170/96 08/05/21 23:13 Pulse Oximetry 96 08/05/21 23:13 MDM - General Adult MDM Narrative: Medical decision making narrative: Pt checked out to me by Dr. Thomason at shift change for delta troponin. Delta is only 2. Pts Hb is 7.6 which is a significant drop. She will need to have that rechecked in a couple of days. She is given a liter of fluid with some improvement. Stool occult blood negative. Bicarb level low, so could be dehydration. Low extremity doppler neg for dvt. Lab Data: Labs: Lab Results 08/05/21 08/05/21 08/05/21 20:57 20:57 20:57 WBC 7.3 10^3/uL 10^3/ uL (4.0-10.0) RBC 2.47 10^6/uL L 10 ^6/uL (4.1-5.3) Hgb 7.6 g/dL L g/dL (11.5-15.3) Hct 24.7 % L % (37.0-47.0) MCV 100.0 fl H fl (81-99) MCH 30.8 pg pg (28.0-34.0) MCHC 30.8 g/dL g/dL (30.0-36.0) RDW 15.5 % H % (12.1-15.1) Plt Count 244 10^3/cmm 10^3 /cmm (130-400) MPV 10.5 fL H fL (7.4-10.4) Neut % (Auto) 47.5 % % Lymph % (Auto) 44.9 % % [place] % (Auto) 5.8 % % Eos % (Auto) 1.0 % % Baso % (Auto) 0.5 % % Neut # (Auto) 3.46 10^3/uL 10^3 /uL (1.8-7.7) Lymph # (Auto) 3.3 10^3/uL 10^3/ uL (0.8-4.8) [place] # (Auto) 0.4 10^3/uL 10^3/ uL (0.2-0.9) Eos # (Auto) 0.1 10^3/uL 10^3/ uL (0.0-0.8) Baso # (Auto) 0.0 10^3/uL 10^3/ uL (0.0-0.1) Nucleated RBC % (a uto) 0 % % Nucleated RBCs # 0.0 /100WBC /100W BC Sodium 142 mmol/L mmol/L (136-145) Potassium 3.5 mmol/L mmol/L (3.5-5.1) Chloride 117 mmol/L H mmol /L (98-107) Carbon Dioxide 16 mmol/L L mmol/ L (22-29) Anion Gap 12.5 (5-19) BUN 14 mg/dL mg/dL (8-23) Creatinine 0.9 mg/dL mg/dL (0.5-0.9) GFR Calculation 61.9 mL/min L mL/ min (90-130) Glucose 70 mg/dL mg/dL (65-115) Calculated Osmolal ity 293 mOsm/kg mOsm/ kg (285-295) Calcium 7.6 mg/dL L mg/dL (8.5-10.5) Troponin T Gen 5 n g/L 12 ng/L H ng/L (0-10) 08/05/21 23:02 WBC RBC Hgb Hct MCV MCH MCHC RDW Plt Count MPV Neut % (Auto) Lymph % (Auto) [place] % (Auto) Eos % (Auto) Baso % (Auto) Neut # (Auto) Lymph # (Auto) [place] # (Auto) Eos # (Auto) Baso # (Auto) Nucleated RBC % (a uto) Nucleated RBCs # Sodium Potassium Chloride Carbon Dioxide Anion Gap BUN Creatinine GFR Calculation Glucose Calculated Osmolal ity Calcium Troponin T Gen 5 n g/L 14 ng/L H ng/L (0-10) Discharge Plan Discharge Patient Disposition: Home Clinical Impression: Light headedness, Anemia Condition: Stable Prescriptions: No Action meclizine 25 mg tablet 25 mg PO DAILY PRN (Reason: Dizziness) RF: 0 Eliquis 5 mg tablet 5 mg PO BID RF: 0 amitriptyline 100 mg tablet 100 mg PO BEDTIME Qty: 90 RF: 3 gabapentin 300 mg Capsule 300 mg PO TID PRN (Reason: Pain) RF: 0 oxycodone 5 mg tablet 5 mg PO Q4H PRN (Reason: Pain) RF: 0 clopidogrel 75 mg tablet 75 mg PO QAM RF: 0 Crestor 40 mg tablet 40 mg PO BEDTIME RF: 0 Prolia 60 mg/mL syringe 60 mg SUBCUT .EVERY 6 MONTHS RF: 0 Farxiga 10 mg tablet 10 mg PO QAM RF: 0 Feosol 325 mg (65 mg iron) tablet 325 mg PO DAILY Qty: 30 RF: 0 Discharge Orders: Discharge ED (Routine); Ordered 08/05/21 Ordered By: Tony Becerra Referrals: Janeen Aj NP [Primary Care Provider] - Discharge Diet: Advance as tolerated Discharge Activity: Resume usual activity Patient Instructions: Lightheadedness (ED) Activity Restrictions/Additional Instructions: Come back to the emergency room for further episodes of lightheadedness, fever chills, chest pain/ dyspnea, pain, or any new concerning complaints. Follow up with your primary doctor by friday for a repeat blood count, as your blood count is a bit low. Coding Level of Care Code ED Head Of English for Irene Hines
[2021-08-05 20:58] VITALS: BP 173/89; PULSE 68; RESP 16; O2SAT 98
[2021-08-05 21:10] LABS: Basophils % 0.5 %; Eosinophils # 0.1 10^3/uL (0.0-0.8); Hematocrit 24.7 % (37.0-47.0); Hemoglobin 7.6 g/dL (11.5-15.3); Lymphocytes # 3.3 10^3/uL (0.8-4.8); Lymphocytes % 44.9 %; Mean Corpuscular HGB Conc 30.8 g/dL (30.0-36.0); Mean Corpuscular Hemoglobin 30.8 pg (28.0-34.0); Mean Platelet Volume 10.5 fL (7.4-10.4); Monocytes # 0.4 10^3/uL (0.2-0.9); Monocytes % 5.8 %; Neutrophils # 3.46 10^3/uL (1.8-7.7); Neutrophils % 47.5 %; Nucleated Red Blood Cells % 0 %; Platelet Count 244 10^3/cmm (130-400); Red Blood Count 2.47 10^6/uL (4.1-5.3); Red Cell Distribution Width 15.5 % (12.1-15.1); White Blood Count 7.3 10^3/uL (4.0-10.0)
[2021-08-05 21:39] LABS: Blood Urea Nitrogen 14 mg/dL (8-23); Calcium 7.6 mg/dL (8.5-10.5); Carbon Dioxide 16 mmol/L (22-29); Chloride 117 mmol/L (98-107); Glomerular Filtration Rate 61.9 mL/min (90-130); Glucose 70 mg/dL (65-115); Osmolality Calculated 293 mOsm/kg (285-295); Sodium 142 mmol/L (136-145)
[2021-08-05 21:48] LABS: Troponin T (5th) Once 12 ng/L (0-10)
[2021-08-05 21:49] LABS: Anion Gap 12.5 (5-19); Potassium 3.5 mmol/L (3.5-5.1)
--- NOTE | 2021-08-05 22:50 | ECG_ITS ---
[facility] Test Date: 2021-08-05 Pat Name: Angela Fontana Department: Room: Gender: Female Inside Trucker: : 1950 Requested By: Randell Thomason Order Number: [id number] Reading MD: SIRISHA SEALS Measurements Intervals [place] Rate: 70 P: 66 NE: 159 QRS: 1 QRSD: 88 T: 64 QT: 382 QTc: 415 Interpretive Statements SINUS RHYTHM WITH MARKED SINUS ARRHYTHMIA SEPTAL MYOCARDIAL INFARCTION , OF INDETERMINATE AGE [40+ ms Q WAVE IN V1/V2] Compared to ECG 08/05/2021 20:09:04 No significant changes Electronically Signed On 08-06-2021 12:57:43 CRATE BUILDER by SIRISHA SEALS [id number]
[2021-08-05] MEDS: sodium chloride 0.9% 1,000 ML 999 ML IV (23:11)
[2021-08-05 23:13] VITALS: BP 170/96; PULSE 70; RESP 14; O2SAT 96
[2021-08-05 23:24] LABS: Troponin T (5th) Once 14 ng/L (0-10)
[2021-08-05 23:57] VITALS: BP 157/80; PULSE 77; RESP 14; O2SAT 97
== END 2021-08-05 23:52 | disposition home or self-care (01) ==
PROVIDERS: Emergency Medicine; Emergency Provider Emergency Medicine; PCP Nurse Practitioner Family
DX: R42 Dizziness and giddiness (principal); D64.9 Anemia, unspecified; Z79.01 Long term (current) use of anticoagulants; Z79.02 Long term (current) use of antithrombotics/antiplatelets; Z86.73 Personal history of transient ischemic attack (TIA), and cerebral infarction without residual deficits; E78.5 Hyperlipidemia, unspecified; F17.210 Nicotine dependence, cigarettes, uncomplicated; M79.604 Pain in right leg
CPT/HCPCS: 36415; 80048; 84484; 85025; 93005; 93971; 96360; 99284; J7030

== ENCOUNTER → 2021-08-08 16:48 | Outpatient (BNVA) | payer SELFPAY | PROVIDERS: PCP Nurse Practitioner Family; Visit Provider Family Medicine | DX: D53.9 Nutritional anemia, unspecified (principal) | CPT/HCPCS: 82607; 82746 ==

== ENCOUNTER → 2021-08-21 13:27 | Outpatient (BNVA) | payer SELFPAY | PROVIDERS: PCP Nurse Practitioner Family; Visit Provider Nurse Practitioner Family | DX: D64.9 Anemia, unspecified (principal); N28.9 Disorder of kidney and ureter, unspecified; R25.2 Cramp and spasm | CPT/HCPCS: 80048; 82272; 85025 ==

== ENCOUNTER 2021-08-28 11:56 | Emergency (ER) | payer SELFPAY ==
--- NOTE | 2021-08-28 12:10 | ECG_ITS ---
[facility] Test Date: 2021-08-28 Pat Name: Angela Fontana Department: Room: Gender: Female Spa Director: : 1950 Requested By: Randell Thomason Order Number: [id number] Reading MD: Ruba Rascon M.D. Measurements Intervals [place] Rate: 73 P: 70 VT: 151 QRS: 63 QRSD: 93 T: 82 QT: 390 QTc: 430 Interpretive Statements SINUS RHYTHM WITH MARKED SINUS ARRHYTHMIA SEPTAL MYOCARDIAL INFARCTION , PROBABLY OLD [40+ ms Q WAVE IN V1/V2] Compared to ECG 08/05/2021 22:40:49 No significant changes Electronically Signed On 08-28-2021 17:53:11 COMMUNITY OUTREACH SPECIALIST by Ruba Rascon M.D. [id number]
--- NOTE | 2021-08-28 12:34 | ED_ITS ---
HPI - General Adult General: Chief complaint: General Medical Stated complaint: DIZZY, WEAK Time Seen by Provider: 08/28/21 12:06 History of Present Illness: HPI narrative: HPI: [71]yo patient w/ hx of DVT on eliquis, recurrent GI bleeding and anemia currently on iron supplementation, CVA, HLD BIBA for complaints of light-headedness while sitting down and watching TV this morning. Patient denies LOC or focal weakness but reports her body feels weak and I could not get up. No prior hx of seizures. Patient denies any prior hx of syncope in the past. Of note, the last 5 days, patient has noticed dark stools. She has been on iron supplementation for 3 months now. No associated symptoms of chest pain, shortness of breath, palpitations or focal weakness right before the incident. Patient was seen and evaluated in the ED on 08/05 at that point int time had a hemoglobin of 7.6. Patient was told for close followup and most recently on 08/21/2021 patient has a hemoglobin of 9.4. Onset: earlier this morning Duration: ongoing Location: home Severity: moderate Review of Systems Narrative: Constitutional: No fever, no chills. +generalized weakness HEENT: No vision changes CV: No chest pain, no palpitations PULM: No productive cough, no dyspnea. GI: No abdominal pain, no N/V/D. : No Dysuria MSKEL: No muscle pain SKIN: No new rashes, no lesions. NEURO: No headache, no focal weakness. +light-headedness HEME: No visible bruises PSYCH: Normal mood PFSH ED PFSH: Medical History Abnormal kidney function Age-related osteoporosis without current pathological fracture CVA (cerebral vascular accident) History of carotid stenosis History of stroke Hyperlipidemia Surgical History History of bladder surgery History of carpal tunnel surgery History of heart surgery History of hysterectomy Social History Alcohol intake: never Marital status: Single Current occupational status: retired Physical Exam Narrative: EXAM NARRATIVE: Head: Atraumatic Eyes: PERRL, conjunctiva without injection, eyes tracking ENT: Mucous membrane moist NECK: Supple without lymphadenopathy LUNGS: LCTAB CV: RRR ABDOMEN: Soft, nontender in all quadrants, no guarding or rebound tenderness, no CVA or flank tenderness bilaterally EXTREMITY: Normal ROM SKIN: No rash or erythema NEURO: Mental status: A/Ox3 CN II-XII tested and intact. Sensation intact to sharp/dull differentiation in all extremities. Motor: Normal tone and bulk. No abnormal movements appreciated. No pronator drift. Strength tested and 5/5 in bilateral wrist flexion/extension, elbow flexion/extension, shoulder abduction, straight leg raise, knee fle xion/extension, ankle dorsiflexion/plantarflexion. Patient ambulates with a steady gait. Coordination: Finger to nose and heel to villalpando testing intact bilaterally. PSYCH: Cooperative mood and affect Course Vital Signs: Vital signs: Vital Signs Temperature 97.9 F 08/28/21 12:59 Pulse Rate 68 08/28/21 15:08 Respiratory Rate 18 08/28/21 15:08 Blood Pressure 149/66 08/28/21 15:08 Pulse Oximetry 97 08/28/21 15:08 MDM - General Adult MDM Narrative: Medical decision making narrative: [71]yo patient w/ hx of CVA, anemia, CAD, HDL, DVT on eliquis presenting to the ED with Syncope. No association with chest pain, dyspnea, palpitations, or focal neurological deficits. HDS Neuro intact. Fingerstick wnl. Given history, exam and workup, presentation not consistent with seizures given a short time course, no postictal state, no seizure activity. Low suspicion for acute neurologic catastrophes to include ICH given lack of trauma, risk factors for bleeding diathesis, or neurogenic causes of syncope. Low suspicion for vascular catastrophes to include PE, thoracic aortic dissection, AAA rupture. Presentation not consistent with acute life threatening arrhythmia, structural heart disease, electrical conduction abnormalities, or ACS. Workup: CBC, CMP, Lipase, UA Intervention: Serial reevaluation, telemetry, PO challenge, 50cc of IVF EKG: No e/o STEMI. No evidence of Brugada?s sign, delta wave, epsilon wave, significantly prolonged QTc, HOCM or malignant arrhythmia. Doubt ACS or other emergent causes of chest pain given normal troponins and EKG findings. Currently chest pain free. [3:45pm] On reassessment, patient denies any syncope or near syncope episodes in the ER. Telemetry without any dysrhythmia. Patient has been able to tolerate PO and ambulate in the ER without issues. Delta troponin <4. I performed shared decision-making with patient regarding admission versus discharge today, and patient prefers to be discharged. I ahve discussed given patient's risk factors that she would better off admitted to the hospital. However, since it [place], patient would like to go home and spentd time with her family. Patient elects to go home and do the stress test on Friday and Friday. I explained the risks of leaving the hospital today including lethal arrythemia, [place], strokens and even . Patient verbalizes understanding of these discussed risk and elect for the alternative of following up earlier next week for evaluation by Cardiology. Patient verbalizes understanding to return for any wor sening symptoms including chest pain, dyspnea, fatigue, arm pain/jaw pain/back pain or any new or concerning issues. Hemoglobin of 9.1 which is consistent with baseline. Patient is currently hemodynamically stabe, ambulated without any difficulties. Disposition: Discharge. Patient is at baseline at this time. Return precautions expressed and understood in person. Advised follow up with a primary care provider or clinic physician in the next 24-48 hours. Given return instructions for any new or concerning symptoms including chest pain, focal neurological deficits, dyspnea, or any new or concerning findings. Lab Data: Labs: Lab Results 08/28/21 08/28/21 08/28/21 12:39 12:52 12:52 WBC 10.2 10^3/uL H 10 ^3/uL (4.0-10.0) RBC 2.86 10^6/uL L 10 ^6/uL (4.1-5.3) Hgb 9.1 g/dL L g/dL (11.5-15.3) Hct 28.7 % L % (37.0-47.0) MCV 100.3 fl H fl (81-99) MCH 31.8 pg pg (28.0-34.0) MCHC 31.7 g/dL g/dL (30.0-36.0) RDW 18.4 % H % (12.1-15.1) Plt Count 273 10^3/cmm 10^3 /cmm (130-400) MPV 10.0 fL fL (7.4-10.4) Neut % (Auto) 71.7 % % Lymph % (Auto) 20.5 % % [place] % (Auto) 6.6 % % Eos % (Auto) 0.3 % % Baso % (Auto) 0.6 % % Neut # (Auto) 7.30 10^3/uL 10^3 /uL (1.8-7.7) Lymph # (Auto) 2.1 10^3/uL 10^3/ uL (0.8-4.8) [place] # (Auto) 0.7 10^3/uL 10^3/ uL (0.2-0.9) Eos # (Auto) 0.0 10^3/uL 10^3/ uL (0.0-0.8) Baso # (Auto) 0.1 10^3/uL 10^3/ uL (0.0-0.1) Nucleated RBC % (a uto) 0 % % Nucleated RBCs # 0.0 /100WBC /100W BC Sodium 136 mmol/L mmol/L (136-145) Potassium 3.7 mmol/L mmol/L (3.5-5.1) Chloride 103 mmol/L mmol/L (98-107) Carbon Dioxide 18 mmol/L L mmol/ L (22-29) Anion Gap 18.7 (5-19) BUN 15 mg/dL mg/dL (8-23) Creatinine 0.9 mg/dL mg/dL (0.5-0.9) GFR Calculation 61.9 mL/min L mL/ min (90-130) Glucose 84 mg/dL mg/dL (65-115) POC Glucose 98 mg/dL mg/dL (70-110) Calculated Osmolal ity 282 mOsm/kg L mOs m/kg (285-295) Calcium 8.5 mg/dL mg/dL (8.5-10.5) Magnesium 1.9 mg/dL mg/dL (1.7-2.3) Troponin T Baselin e Troponin T 120 Min [place] Delta Troponin T 08/28/21 08/28/21 12:52 14:52 WBC RBC Hgb Hct MCV MCH MCHC RDW Plt Count MPV Neut % (Auto) Lymph % (Auto) [place] % (Auto) Eos % (Auto) Baso % (Auto) Neut # (Auto) Lymph # (Auto) [place] # (Auto) Eos # (Auto) Baso # (Auto) Nucleated RBC % (a uto) Nucleated RBCs # Sodium Potassium Chloride Carbon Dioxide Anion Gap BUN Creatinine GFR Calculation Glucose POC Glucose Calculated Osmolal ity Calcium Magnesium Troponin T Baselin e 11 ng/L H ng/L (0-10) Troponin T 120 Min [place] 11.99 ng/L H ng/L (0-10) Delta Troponin T 0.99 ABS# ABS# (0-10) Discharge Plan Discharge Patient Disposition: Home Clinical Impression: Light headedness, Generalized weakness Condition: Stable Prescriptions: No Action Feosol 325 mg (65 mg iron) tablet 325 mg PO BID RF: 0 meclizine 25 mg tablet 25 mg PO BID PRN (Reason: Dizziness) RF: 0 Eliquis 5 mg tablet 5 mg PO BID RF: 0 amitriptyline 100 mg tablet 100 mg PO BEDTIME Qty: 90 RF: 3 gabapentin 300 mg Capsule 300 mg PO TID PRN (Reason: Pain) RF: 0 clopidogrel 75 mg tablet 75 mg PO QAM RF: 0 rosuvastatin [Crestor] 40 mg tablet 40 mg PO BEDTIME RF: 0 Prolia 60 mg/mL syringe 60 mg SUBCUT .EVERY 6 MONTHS RF: 0 Farxiga 10 mg tablet 10 mg PO QAM RF: 0 Tylenol Arthritis 650 mg Tablet Extended Release 650 mg PO Q12H PRN (Reason: Pain) RF: 0 Benadryl Allergy 25 mg Tablet 25 mg PO DAILY PRN (Reason: Allergy Symptoms) RF: 0 ibuprofen 200 mg Tablet 400 - 600 mg PO Q4H PRN (Reason: Pain) RF: 0 Aspercreme (lidocaine HCl) 4 % Liquid Roll-On 1 ea TOPICAL PRN RF: 0 Discharge Orders: Discharge ED (Routine); Ordered 08/28/21 Ordered By: Randell Thomason Referrals: Janeen Aj NP [Primary Care Provider] - Discharge Diet: Advance as tolerated Discharge Activity: Resume usual activity Patient Instructions: Lightheadedness (ED) Activity Restrictions/Additional Instructions: Come back to the emergency room if your chest pain worsens, have any fever or chills, worsening shortness of breath, worsening exertional lightheadedness, or any new or concerning complaints. Coding Level of Care Code ED Configuration Management Specialist for Irene Hines
[2021-08-28 12:49] LABS: Glucose Point of Care 98 mg/dL (70-110)
[2021-08-28] MEDS: sodium chloride 0.9% 500 ML IV (12:52)
[2021-08-28 12:59] VITALS: BP 148/66; PULSE 75; RESP 18; TEMP 36.6; O2SAT 100; BMI 21.6
[2021-08-28 13:02] LABS: Basophils # 0.1 10^3/uL (0.0-0.1); Basophils % 0.6 %; Eosinophils % 0.3 %; Hematocrit 28.7 % (37.0-47.0); Hemoglobin 9.1 g/dL (11.5-15.3); Lymphocytes # 2.1 10^3/uL (0.8-4.8); Lymphocytes % 20.5 %; Mean Corpuscular HGB Conc 31.7 g/dL (30.0-36.0); Mean Corpuscular Hemoglobin 31.8 pg (28.0-34.0); Mean Corpuscular Volume 100.3 fl (81-99); Monocytes # 0.7 10^3/uL (0.2-0.9); Monocytes % 6.6 %; Neutrophils % 71.7 %; Nucleated Red Blood Cells % 0 %; Platelet Count 273 10^3/cmm (130-400); Red Blood Count 2.86 10^6/uL (4.1-5.3); Red Cell Distribution Width 18.4 % (12.1-15.1); White Blood Count 10.2 10^3/uL (4.0-10.0)
[2021-08-28 13:21] LABS: Anion Gap 18.7 (5-19); Blood Urea Nitrogen 15 mg/dL (8-23); Calcium 8.5 mg/dL (8.5-10.5); Carbon Dioxide 18 mmol/L (22-29); Chloride 103 mmol/L (98-107); Glomerular Filtration Rate 61.9 mL/min (90-130); Glucose 84 mg/dL (65-115); Magnesium 1.9 mg/dL (1.7-2.3); Osmolality Calculated 282 mOsm/kg (285-295); Potassium 3.7 mmol/L (3.5-5.1); Sodium 136 mmol/L (136-145)
[2021-08-28 13:22] LABS: Troponin(5th) Baseline 11 ng/L (0-10)
[2021-08-28 15:08] VITALS: BP 149/66; PULSE 68; RESP 18; O2SAT 97
[2021-08-28 15:20] LABS: Troponin 5 2HR 11.99 ng/L (0-10); Troponin 5 2HR Delta 0.99 ABS# (0-10)
== END 2021-08-28 15:51 | disposition home or self-care (01) ==
PROVIDERS: Emergency Provider Emergency Medicine; PCP Nurse Practitioner Family
DX: R53.1 Weakness (principal); R42 Dizziness and giddiness; E78.5 Hyperlipidemia, unspecified; I25.10 Atherosclerotic heart disease of native coronary artery without angina pectoris; D64.9 Anemia, unspecified; Z79.899 Other long term (current) drug therapy; Z79.01 Long term (current) use of anticoagulants; Z86.73 Personal history of transient ischemic attack (TIA), and cerebral infarction without residual deficits; Z86.718 Personal history of other venous thrombosis and embolism
CPT/HCPCS: 36415; 36416; 80048; 82962; 83735; 84484; 85025; 93005; 96360; 99284; J7040

== ENCOUNTER → 2021-10-03 10:01 | Outpatient (BNVA) | payer SELFPAY | PROVIDERS: PCP Nurse Practitioner Family; Visit Provider Nurse Practitioner Family | DX: Z78.0 Asymptomatic menopausal state (principal) | CPT/HCPCS: 82310 ==

== ENCOUNTER 2021-10-09 11:28 | Outpatient (CLI) | payer SELFPAY ==
[2021-10-09] MEDS: iohexol 300 mg/mL 50 mL Btl PO (12:15)
--- NOTE | 2021-10-09 13:00 | CT_ITS ---
WS: [id number] CT ABDOMEN AND PELVIS NONCONTRAST HISTORY: N30.01 - Acute cystitis with hematuria TECHNIQUE: Imaging performed through the abdomen and pelvis. Coronal and sagittal reformats are submi tted. All CT scans at [facility] use at least one of these dose optimization techniques: auto mated exposure control; mA and/or kV adjustment per patient size (includes targeted exams where dose is matched to clinical indication); or iterative reconstruction. DLP: 562.86 mGy.cm COMPARISON: 09/11/2016 Lower thorax: Mild branching and thickening of the distal airways probably related to smoking history . No dense area of consolidation. Heart size is normal. Normal GE junction. Liver: Normal size liver. No mass or bile duct dilatation. Gallbladder: Mildly contracted. No adjacent inflammation. Pancreas: Normal size and attenuation. Normal pancreatic duct. No pancreatitis or mass. Spleen: Normal. Adrenal glands: Normal. No mass. Right kidney: No obstruction or solid mass. There are a few nonobstructing calcifications. Left kidney: No obstruction or mass identified on this unenhanced study. There are a few vascular tatyana cifications. Aorta: Moderate atherosclerotic plaque within the aorta. There is heavy calcified plaque at the origi ns of the celiac axis and SMA. Very small caliber celiac axis may be partially occluded. There is als o high-grade stenosis involving the SMA. Renal artery calcifications. Heavy calcification continues i nto the common and external iliac arteries. Short distal RIGHT external iliac artery stent. No free fluid, intraperitoneal air or significant lymphadenopathy. GI tract: Focal area of soft tissue inflammation and mild narrowing of the ascending colon. Submucosa l thickening and narrowing of the lumen is at the inferior tip of the RIGHT lobe of the liver. No jacy e air. No adjacent lymph nodes. The appendix is identified and normal. Moderate constipation. Abdominal wall: Negative. No hernia. Pelvis: Well-distended urinary bladder. No free fluid or adenopathy. Osseous structures: Straightening of the normal lordosis. Degenerative disc disease and vacuum disc p henomenon at L4-5 and L5-S1. CT/CT abdomen pelvis wo con [id number] IMPRESSION: 1. Focal area of moderate inflammation with submucosal thickening and narrowin g of the lumen involving the ascending colon. Differential includes focal colit is, diverticulitis and neoplasm. Recommend colonoscopy follow-up to exclude tracie plasm. 2. Normal appendix. 3. Extensive calcification within the aorta and mesenteric arteries. 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
== END 2021-10-09 11:29 | disposition home or self-care (01) ==
LOC: RAD 11:30
PROVIDERS: PCP Nurse Practitioner Family; Visit Provider Family Medicine
DX: N30.01 Acute cystitis with hematuria (principal); I70.0 Atherosclerosis of aorta
CPT/HCPCS: 74176

== ENCOUNTER → 2021-11-08 16:23 | Outpatient (BNVA) | payer MEDICAID, SELFPAY | PROVIDERS: PCP Nurse Practitioner Family; Visit Provider Internal Medicine | DX: Z01.812 Encounter for preprocedural laboratory examination (principal); D64.9 Anemia, unspecified; R93.5 Abnormal findings on diagnostic imaging of other abdominal regions, including retroperitoneum; D50.0 Iron deficiency anemia secondary to blood loss (chronic) | CPT/HCPCS: 82607; 82746; 83550; 84443; 85025; 87635 ==

== ENCOUNTER → 2021-11-13 09:07 | Outpatient (BNVA) | payer MEDICAID, SELFPAY | PROVIDERS: PCP Nurse Practitioner Family; Visit Provider Internal Medicine | DX: Z01.818 Encounter for other preprocedural examination (principal); Z20.822 Contact with and (suspected) exposure to COVID-19 | CPT/HCPCS: 87635 ==

== ENCOUNTER 2021-11-19 06:29 | Day surgery (SDC) | payer MEDICAID, SELFPAY ==
[2021-11-15 13:13] VITALS: BMI 20.7
--- NOTE | 2021-11-19 07:16 | ANES.PREANE2 ---
Pre-Anesthetic Assessment Height/Weight: Height 1.65 m Weight 56.699 kg Preop Diagnosis: Fe def an Operation Date: 11/19/21 08:00 Proposed Procedures p EGD [id number]/d64.9(Not Applicable) - Mikel Last MD s Colonoscopy(Not Applicable) - Mikel Last MD Familial anesthetic complications: None Was Beta Sivan taken within 24 hours: N/A Was Clonidine taken within 24 hours: N/A Last intake: > 8 hrs Social Tobacco and No alcohol Exam alert, oriented x 3, clear to auscultation bilaterally and regular rate & rhythm Airway Mallampati: Class II Dentition: false Pulmonary None reported CV/HEM None reported DVT None reported Hepatic None reported Metabolic None reported Neuropsych Cerebrovascular Accident (2013 - dizziness still) Anesthetic Plan ASA status: 3 Anesthesia: MAC Risk of > 500 ml blood loss (7ml/kg in children): No Medications/Allergies Home Medications Medication Instructions Recorded Confirmed Last Taken Type apixaban 5 mg tablet (Eliquis) 5 mg PO BID 06/13/21 11/15/21 11/15/21 History meclizine 25 mg tablet 25 mg PO BID PRN 06/13/21 11/15/21 11/14/21 History clopidogrel 75 mg tablet 75 mg PO QAM 07/10/21 11/15/21 11/14/21 History rosuvastatin 40 mg tablet (Crestor) 40 mg PO BEDTIME 07/10/21 11/15/21 11/14/21 History amitriptyline 100 mg tablet 100 mg PO BEDTIME #90 tab 07/13/21 11/15/21 11/14/21 Rx acetaminophen 650 mg 650 mg PO Q12H PRN 08/28/21 11/15/21 11/12/21 History tablet,extended release ibuprofen 200 mg tablet 400 - 600 mg PO Q4H PRN 08/28/21 11/15/21 Unknown History lidocaine HCl 4 % topical liquid 1 ea TOPICAL PRN 08/28/21 11/15/21 Unknown History roll-on (Aspercreme (lidocaine HCl)) denosumab 60 mg/mL subcutaneous 60 mg SUBCUT .EVERY 6 MONTHS #1 ml 10/09/21 11/15/21 11/01/21 Rx syringe (Prolia) Allergies Allergy/AdvReac Type Severity Reaction Status Date / Time codeine Allergy ADR-Nausea Verified 11/08/21 09:08 [facility] Anesthesia Medical History Abnormal kidney function Age-related osteoporosis without current pathological fracture CVA (cerebral vascular accident) History of carotid stenosis History of stroke Hyperlipidemia Surgical History History of bladder surgery History of carpal tunnel surgery History of heart surgery History of hysterectomy Social History Smoking and tobacco status: current every day smoker cigarettes Alcohol intake: never Marital status: Single Current occupational status: retired Data Anesthesia Cardiac Studies: No Data to Display
[2021-11-19 07:30] VITALS: BP 131/81; PULSE 83; RESP 18; TEMP 36.9; O2SAT 99
[2021-11-19] MEDS: sodium chloride 0.9% 1,000 ML 30 ML IV (07:38)
--- NOTE | 2021-11-19 07:39 | W.PM.OPSFHP ---
Same Day Surgery H&P Indication for Procedure/HPI DATE OF PROCEDURE: November 19, 2021 CHIEF COMPLAINT/INDICATIONFOR SURGICAL PROCEDURE: Iron deficiency anemia iron deficiency anemia PREOP DIAGNOSIS: Fe def an PLANNED PROCEDURE: Operation Date: 11/19/21 08:00 Proposed Procedures p EGD 15145/51849/d64.9(Not Applicable) - Mikel Last MD s Colonoscopy(Not Applicable) - Mikel Last MD Medications/Allergies* Home Medications Medication Instructions Recorded Confirmed Type apixaban 5 mg tablet (Eliquis) 5 mg PO BID 06/13/21 11/19/21 History meclizine 25 mg tablet 25 mg PO BID PRN 06/13/21 11/19/21 History clopidogrel 75 mg tablet 75 mg PO QAM 07/10/21 11/19/21 History rosuvastatin 40 mg tablet (Crestor) 40 mg PO BEDTIME 07/10/21 11/19/21 History acetaminophen 650 mg 650 mg PO Q12H PRN 08/28/21 11/19/21 History tablet,extended release Allergies/Adverse Reactions Allergy/AdvReac Type Severity Reaction Status Date / Time codeine Allergy ADR-Nausea Verified 11/19/21 07:26 Current Medications: Generic Name Dose Route Start Last Admin Trade Name Freq PRN Reason Stop Dose Admin Sodium Chloride 1,000 mls @ 30 mls/hr 11/19/21 07:00 11/19/21 07:38 Sodium Chloride 0.9% IV 30 mls/hr .Q24H TRINO Administration Pertinent History/Comorbid Conditions* Medical History (Updated 10/17/21 @ 08:50 by Nolan Valle DO) Abnormal kidney function Age-related osteoporosis without current pathological fracture CVA (cerebral vascular accident) History of carotid stenosis History of stroke Hyperlipidemia Surgical History (Updated 09/28/19 @ 11:55 by Janeen Aj NP) History of bladder surgery History of carpal tunnel surgery History of heart surgery History of hysterectomy Social History Smoking and tobacco status: current every day smoker cigarettes Alcohol intake: never Marital status: Single Current occupational status: retired Pertinent Exam Findings alert, oriented x 3, clear to auscultation bilaterally, regular rate & rhythm, operative site marked and procedure specific exam findings Recommendations Surgery/Procedure today Coding Level of Care Code Acute Manager Android for Irene Hines
[2021-11-19 08:40] VITALS: BP 122/74; PULSE 74; RESP 16; TEMP 36.1; O2SAT 96
--- NOTE | 2021-11-19 08:47 | XR_ITS ---
WS: [id number] XR abdomen 1V* [id number] REASON FOR EXAM: ABD PAIN FINDINGS: Lower abdomen not imaged on the examination. No free air or retroperitoneal air. Nonspecific mild to moderate gaseous distention of multiple loops of colon and small bowel. XR/XR abdomen 1V* [id number] IMPRESSION: Limited examination with no acute abnormality.
[2021-11-19 08:53] VITALS: BP 103/56; PULSE 72; RESP 20; O2SAT 98
[2021-11-19 09:01] VITALS: BP 124/100; PULSE 66; RESP 20; O2SAT 100
[2021-11-19 09:13] VITALS: BP 142/76; PULSE 65; RESP 20; O2SAT 97
--- NOTE | 2021-11-19 13:43 | ANE.PACU2 ---
Inpatient post-anesthesia follow up: Airway intact: Yes Vital signs: Temperature 97.0 F Pulse Rate 65 Respiratory Rate 20 Blood Pressure 142/76 Pulse Oximetry 97 Oxygen Delivery Me thod Room Air Oxygen Flow Rate 3.5 Fraction of Inspir ed Oxygen Hydration adequate: Yes Nausea and vomiting: Yes Pain level: 1 Mental status: Baseline
[2021-11-20 06:43] LABS: H. Pylori / CLO Test Positive
== END 2021-11-19 10:04 | disposition home or self-care (01) ==
PROVIDERS: PCP Nurse Practitioner Family; Visit Provider Internal Medicine
PROC: 0DJ08ZZ Inspection of Upper Intestinal Tract, Via Natural or Artificial Opening Endoscopic (ICD-10-PCS; CPT 43235; principal; 2021-11-19 08:00)
PROC: 0DJD8ZZ Inspection of Lower Intestinal Tract, Via Natural or Artificial Opening Endoscopic (ICD-10-PCS; CPT 45378; 2021-11-19 08:00)
DX: D50.9 Iron deficiency anemia, unspecified (principal); D12.4 Benign neoplasm of descending colon; M81.0 Age-related osteoporosis without current pathological fracture; Z86.73 Personal history of transient ischemic attack (TIA), and cerebral infarction without residual deficits; E78.5 Hyperlipidemia, unspecified; F17.210 Nicotine dependence, cigarettes, uncomplicated; K29.70 Gastritis, unspecified, without bleeding
CPT/HCPCS: 43239; 45385; 74018; 87077; 88305; 88342; J2704; J7030

== ENCOUNTER 2021-11-29 08:06 | Outpatient (CLI) | payer MEDICAID, SELFPAY ==
--- NOTE | 2021-11-29 08:17 | FL_ITS ---
WS: [id number] Barium enema, 11/29/2021 Clinical Data: ABN FINDINGS ON DIAGNOSTIC IMAGING OF ABDOMEN Comparison: CT abdomen pelvis, 10/09/2021. Fluoroscopy time: 4.4 minutes. Findings: The barium was introduced in a retrograde fashion to fill the entire colon. The barium flowed normall y throughout the entire colon. The haustral pattern was normal. There were no polyps, masses or obstr uction. There is no extravasation or diverticulitis. The descending colon showed an abnormal mucosal surface. The mucosal surface was irregular but there were no polyps or masses. The ascending colon filled incompletely. There was reflux into the appendix but not into the small bowel. FL/FL barium enema [id number] Impression: 1. Abnormal mucosal surface of the ascending colon which may indicate chronic i nflammatory colitis, an unusual neoplasm affecting the mucosal surface, chronic inflammatory disease from medication, unusual infection or autoimmune disease, unusual form of Crohn's disease or unusual parasitic disease. 2. Negative for distal colon abnormalities.
== END 2021-11-29 08:07 | disposition home or self-care (01) ==
PROVIDERS: PCP Nurse Practitioner Family; Visit Provider Internal Medicine
DX: R93.5 Abnormal findings on diagnostic imaging of other abdominal regions, including retroperitoneum (principal)
CPT/HCPCS: 74270

== ENCOUNTER 2021-12-24 21:28 | Emergency (ER) | payer MEDICAID, SELFPAY ==
[2021-12-24 21:35] VITALS: BP 104/72; PULSE 104; RESP 18; TEMP 36.4; O2SAT 96
--- NOTE | 2021-12-24 21:35 | CTR_ITS ---
PROCEDURE INFORMATION: Exam: CT Abdomen And Pelvis With Contrast Exam date and time: 12/24/2021 10:58 PM Age: 71 years old Clinical indication: Nausea; Abdominal pain; Localized; Right lower quadrant (rlq); Prior surgery; Surgery date: 6+ months; Surgery type: Bladder/ hyst; Patient HX: V/d; Additional info: Abd pain TECHNIQUE: Imaging protocol: Computed tomography of the abdomen and pelvis with contrast. Radiation optimization: All CT scans at this facility use at least one of these dose optimization techniques: automated exposure control; mA and/or kV adjustment per patient size (includes targeted exams where dose is matched to clinical indication); or iterative reconstruction. Contrast material: VISI; Contrast volume: 75 ml; Contrast route: INTRAVENOUS (IV); COMPARISON: CT abdomen pelvis wo con [id number] 10/09/2021 1:08 PM RADIATION DOSE METRICS: Total DLP (mGy-cm): 856.48 FINDINGS: Liver: Normal. No mass. Gallbladder and bile ducts: Normal. No calcified stones. No ductal dilation. Pancreas: Normal. No ductal dilation. Spleen: Normal. No splenomegaly. Adrenal glands: Normal. No mass. Kidneys and ureters: Multiple 1-2 mm nonobstructing renal calculi. No ureteral calculus or hydronephrosis. Stomach and bowel: Scattered fluid throughout the colon to the rectum. Circumferential wall thickening in the the cecum and ascending colon. Apple-core type lesion in the distal ascending colon with narrowing of the lumen. Scattered fluid and air-fluid levels throughout the small bowel. No obstruction. The stomach is unremarkable. Appendix: The appendix is visualized and is normal. Intraperitoneal space: Unremarkable. No free air. No significant fluid collection. Arteries: Congenitally small celiac artery. Stent in the proximal superior mesenteric artery. Stent in the distal right external iliac artery. Lymph nodes: Unremarkable. No enlarged lymph nodes. Urinary bladder: Unremarkable as visualized. Reproductive: The uterus is absent. Possible retained small ovaries. Bones/joints: Degenerative changes and curvature in the lumbar spine. No fracture. Soft tissues: Unremarkable. CT/CT abdomen pelvis w con* [id number] IMPRESSION: 1. Apple-core type lesion in the ascending colon. This is suspicious for primary colon malignancy. Follow-up with colonoscopy is recommended. 2. Circumferential wall thickening in the cecum and proximal ascending colon. This most likely represents infectious versus inflammatory colitis. 3. Scattered fluid throughout the small bowel and colon. This is consistent with diarrhea and possible enteritis.
--- NOTE | 2021-12-24 21:37 | W.ED.ABDPA2 ---
HPI - Abdominal Pain General: Chief Complaint: Abdominal Pain Stated Complaint: abd pain, N/V Time Seen by Provider: 12/24/21 21:31 Source: patient Mode of arrival: ambulatory Limitations: no limitations History of Present Illness: 71-year-old female states that throughout the day she has been having right lower quadrant abdominal pain. She states the pain is sharp in nature rates it a 7 out of 10 she has had vomiting as well she denies any diarrhea denies constipation last bowel movement this morning denies any dysuria she denies any worsening or improving factors. She denies any fevers. Associated Symptoms: Denies chills, dysuria and fever(s) Review of Systems Const: Denies: fever(s), chills, body aches or change in appetite Eyes: Denies: blurry vision or eye discomfort ENMT: Denies: throat pain or dental pain Card: Denies: chest pain Resp: Denies: dyspnea GI: Reports: abdominal pain : Denies: dysuria Musc: Denies: neck pain or back pain Skin/Breast: Denies: rash Neuro: Denies: headache(s) Psych: Denies: depression Samuel/Lymph: Denies: easy bruising All/Imm: Denies: urticaria PFSH ED PFSH: Medical History Abnormal kidney function Age-related osteoporosis without current pathological fracture CVA (cerebral vascular accident) History of carotid stenosis History of stroke Hyperlipidemia Surgical History History of bladder surgery History of carpal tunnel surgery History of heart surgery History of hysterectomy Social History Smoking and tobacco status: current every day smoker cigarettes Alcohol intake: never Marital status: Single Current occupational status: retired Physical Exam Const: COMMON NORMALS: no acute distress, patient oriented x3 and healthy appearing HENMT: COMMON NORMALS: normocephalic and atraumatic HEAD & SCALP: normocephalic and atraumatic Eye: COMMON NORMALS: Equal, round and reactive pupils present and EOMs intact bilaterally PUPIL: Yes Equal, round and reactive pupils present Neck/C-Spine: COMMON NORMALS: full ROM and supple Chest: COMMONS NORMALS: normal inspection of the chest and normal palpation of entire chest wall Resp: COMMON NORMALS: normal respiratory effort, No retractions, No use of accessory muscles and clear to auscultation bilaterally AUSCULTATION: clear to auscultation bilaterally Cardio: COMMON NORMALS: regular rate, regular rhythm and No murmurs present (Cardio) RATE: regular rate RHYTHM: regular rhythm GI: COMMON NORMALS: Normal to inspection, nondistended, normoactive bowel sounds present, Soft to palpation and no masses PALPATION: Yes Soft to palpation and Yes Tenderness to palpation present (GI) Details: RLQ Extremity: COMMON NORMALS: normal to inspection and full ROM Neuro: COMMON NORMALS: patient oriented x3, moves all extremities and no focal motor deficits Psych: COMMON NORMALS: mental status grossly normal, Normal thought process present and cooperative THOUGHT PROCESS: Normal thought process present Skin: COMMON NORMALS: no rashes or lesions noted and no wounds GENERAL SKIN EXAM: no rashes or lesions noted Course Vital Signs: Vital signs: Vital Signs Temperature 97.5 F L 12/24/21 21:35 Pulse Rate 104 H 12/24/21 21:35 Respiratory Rate 18 12/24/21 21:35 Blood Pressure 104/72 12/24/21 21:35 Pulse Oximetry 96 12/24/21 21:35 MDM - Abdominal Pain Medical Decision Making Patient presents here with abdominal pain and diarrhea CT shows colitis possible colon mass we will start her on antibiotics pain medicine get her follow-up with surgery to further work-up the colon mass I informed her that she understands agrees to plan. Lab Data : 12/24/21 21:59 12/24/21 21:59 Labs/Radiology: Radiology Impressions Abdomen/Pelvis CT 12/24/21 21:35 IMPRESSION: 1. Apple-core type lesion in the ascending colon. This is suspicious for primary colon malignancy. Follow-up with colonoscopy is recommended. 2. Circumferential wall thickening in the cecum and proximal ascending colon. This most likely represents infectious versus inflammatory colitis. 3. Scattered fluid throughout the small bowel and colon. This is consistent with diarrhea and possible enteritis. Laboratory Results WBC 12.6 10^3/uL (4.0-10.0) H 12/24/21 21:59 RBC 4.53 10^6/uL (4.1-5.3) 12/24/21 21:59 Hgb 14.0 g/dL (11.5-15.3) 12/24/21 21:59 Hct 41.5 % (37.0-47.0) 12/24/21 21:59 MCV 91.6 fl (81-99) 12/24/21 21:59 MCH 30.9 pg (28.0-34.0) 12/24/21 21:59 MCHC 33.7 g/dL (30.0-36.0) 12/24/21 21:59 RDW 14.5 % (12.1-15.1) 12/24/21 21:59 Plt Count 287 10^3/cmm (130-400) 12/24/21 21:59 MPV 10.7 fL (7.4-10.4) H 12/24/21 21:59 Neut % (Auto) 76.5 % 12/24/21 21:59 Lymph % (Auto) 17.0 % 12/24/21 21:59 [place] % (Auto) 5.9 % 12/24/21 21:59 Eos % (Auto) 0.0 % 12/24/21 21:59 Baso % (Auto) 0.3 % 12/24/21 21:59 Neut # (Auto) 9.63 10^3/uL (1.8-7.7) H 12/24/21 21:59 Lymph # (Auto) 2.1 10^3/uL (0.8-4.8) 12/24/21 21:59 [place] # (Auto) 0.7 10^3/uL (0.2-0.9) 12/24/21:59 Eos # (Auto) 0.0 10^3/uL (0.0-0.8) 12/24/21 21:59 Baso # (Auto) 0.0 10^3/uL (0.0-0.1) 12/24/21:59 Nucleated RBC % (auto) 0 % 12/24/21: Nucleated RBCs # 0.0 /100WBC 12/24/21 21:59 Sodium 134 mmol/L (136-145) L 12/24/21 21:59 Potassium 4.4 mmol/L (3.5-5.1) 12/24/21 21:59 Chloride 95 mmol/L (98-107) L 12/24/21 21:59 Carbon Dioxide 24 mmol/L (22-29) 12/24/21 21:59 Anion Gap 19.4 (5-19) H 12/24/21 21:59 BUN 23 mg/dL (8-23) 12/24/21 21:59 Creatinine 1.8 mg/dL (0.5-0.9) H 12/24/21 21:59 GFR Calculation 27.8 mL/min (90-130) L 12/24/21 21:59 Glucose 125 mg/dL (65-115) H 12/24/21 21:59 Calculated Osmolality 283 mOsm/kg (285-295) L 12/24/21 21:59 Calcium 9.7 mg/dL (8.5-10.5) 12/24/21 21:59 Total Bilirubin 0.5 mg/dL (0.15-1.2) 12/24/21 21:59 AST 18 U/L (0-32) 12/24/21 21:59 ALT 10 U/L (0-33) 12/24/21 21:59 Alkaline Phosphatase 66 IU/L (35-105) 12/24/21 21:59 Total Protein 7.8 g/dL (6.6-8.7) 12/24/21 21:59 Albumin 5.0 g/dL (3.5-5.2) 12/24/21 21:59 Globulin 2.8 g/dL (1.3-4.6) 12/24/21 21:59 Lipase 28 U/L (13-60) 12/24/21 21:59 Discharge Plan Discharge Patient Disposition: Home Clinical Impression: Colitis, Mass of colon, Abdominal pain Condition: Stable Prescriptions: New hydrocodone-acetaminophen 5-325 mg tablet 1 tab PO Q6H PRN (Reason: pain) Qty: 14 0RF ondansetron 4 mg tablet,disintegrating 4 mg PO Q6H PRN (Reason: nausea and vomiting) Qty: 14 0RF Cipro 500 mg tablet 500 mg PO BID Qty: 14 0RF metronidazole 500 mg tablet 500 mg PO Q8H 7 Days Qty: 21 0RF No Action meclizine 25 mg tablet 25 mg PO BID PRN (Reason: Dizziness) 0RF Eliquis 5 mg tablet 5 mg PO BID 0RF amitriptyline 100 mg tablet 100 mg PO BEDTIME Qty: 90 3RF Prolia 60 mg/mL syringe 60 mg SUBCUT .EVERY 6 MONTHS Qty: 1 0RF doxycycline hyclate 100 mg tablet 100 mg PO BID 10 Days Qty: 20 0RF bismuth subsalicylate [Pepto-Bismol] 262 mg/15 mL suspension 524 mg PO Q30M PRN (Reason: diarrhea) 10 Days Qty: 1200 0RF Rx Instructions: 30 mls before meals and snacks for 10 days metronidazole 500 mg tablet 500 mg PO TID 10 Days Qty: 30 0RF clopidogrel 75 mg tablet 75 mg PO QAM 0RF rosuvastatin [Crestor] 40 mg tablet 40 mg PO BEDTIME 0RF acetaminophen 650 mg Tablet Extended Release 650 mg PO Q12H PRN (Reason: Pain) 0RF pantoprazole 40 mg tablet,delayed release (DR/EC) 40 mg PO DAILY Qty: 90 8RF Discharge Orders: Discharge ED (Routine); Ordered 12/24/21 Ordered By: Summer Rain Referrals: Nic Oliveira MD [Physician] - 1-3 days Janeen Aj NP [Primary Care Provider] - Discharge Diet: Advance as tolerated Discharge Activity: Resume usual activity Patient Instructions: Abdominal Pain (ED), Opioid Safety Coding Level of Care Code ED Learning And Development Director for Chg Fwd Exam Comprehensive
[2021-12-24] MEDS: ondansetron 2 mg/ML SDV 2 mL 4 MG IVP (21:40)
[2021-12-24] MEDS: sodium chloride 0.9% 1,000 ML 999 ML IV ×2 (21:40→23:50)
[2021-12-24] MEDS: morphine 4 mg/mL SDV 1 mL IVP (21:40)
[2021-12-24 22:17] LABS: Basophils % 0.3 %; Hematocrit 41.5 % (37.0-47.0); Lymphocytes # 2.1 10^3/uL (0.8-4.8); Mean Corpuscular HGB Conc 33.7 g/dL (30.0-36.0); Mean Corpuscular Hemoglobin 30.9 pg (28.0-34.0); Mean Corpuscular Volume 91.6 fl (81-99); Mean Platelet Volume 10.7 fL (7.4-10.4); Monocytes # 0.7 10^3/uL (0.2-0.9); Monocytes % 5.9 %; Neutrophils # 9.63 10^3/uL (1.8-7.7); Neutrophils % 76.5 %; Nucleated Red Blood Cells % 0 %; Platelet Count 287 10^3/cmm (130-400); Red Blood Count 4.53 10^6/uL (4.1-5.3); Red Cell Distribution Width 14.5 % (12.1-15.1); White Blood Count 12.6 10^3/uL (4.0-10.0)
[2021-12-24 22:30] LABS: Alanine Aminotransferase 10 U/L (0-33); Alkaline Phosphatase 66 IU/L (35-105); Anion Gap 19.4 (5-19); Aspartate Amino Transferase 18 U/L (0-32); Blood Urea Nitrogen 23 mg/dL (8-23); Calcium 9.7 mg/dL (8.5-10.5); Carbon Dioxide 24 mmol/L (22-29); Chloride 95 mmol/L (98-107); Globulin 2.8 g/dL (1.3-4.6); Glomerular Filtration Rate 27.8 mL/min (90-130); Glucose 125 mg/dL (65-115); Lipase 28 U/L (13-60); Osmolality Calculated 283 mOsm/kg (285-295); Potassium 4.4 mmol/L (3.5-5.1); Sodium 134 mmol/L (136-145); Total Bilirubin 0.5 mg/dL (0.15-1.2); Total Protein 7.8 g/dL (6.6-8.7)
[2021-12-24] MEDS: iodixanol 320 mg/mL 100mL Btl IV (23:01)
[2021-12-24] MEDS: diphenoxylate/atropine Tablet 1 TAB PO (23:25)
[2021-12-25 00:08] VITALS: BP 130/52; PULSE 74; RESP 16
--- NOTE | 2021-12-25 12:38 | DCPLANNER ---
Addendum entered by Viviana Bragg 01/01/22 08:07: redevelopment manager contacted general surgery to confirm if an appointment had been scheduled for patient. redevelopment manager was told that clinic: Called patient asked her to call patient financial and then call us back to schedule an appt. Per Ladan. Original Note: redevelopment manager had message to schedule a follow up appointment for patient with general surgery. redevelopment manager sent patients information to the front office staff at general surgery. Patients information will be printed and reviewed. Clinic will call patient with appointment information.
== END 2021-12-25 00:05 | disposition home or self-care (01) ==
PROVIDERS: Emergency Provider Emergency Medicine; PCP Nurse Practitioner Family
DX: K52.9 Noninfective gastroenteritis and colitis, unspecified (principal); K63.9 Disease of intestine, unspecified; F17.210 Nicotine dependence, cigarettes, uncomplicated
CPT/HCPCS: 74177; 80053; 83690; 85025; 96361; 96374; 96375; 99284; J2270; J2405; J7030; Q9967

== ENCOUNTER → 2022-02-15 11:00 | Outpatient (BNVA) | payer MEDICAID, SELFPAY | PROVIDERS: PCP Nurse Practitioner Family; Visit Provider Nurse Practitioner Family | DX: D64.9 Anemia, unspecified (principal); E78.5 Hyperlipidemia, unspecified | CPT/HCPCS: 80053; 80061; 85025 ==

== ENCOUNTER → 2023-07-30 09:08 | Outpatient (BNVA) | payer MEDICARE, MEDICAID, SELFPAY | PROVIDERS: PCP Nurse Practitioner Family; Visit Provider Nurse Practitioner Family | DX: E53.8 Deficiency of other specified B group vitamins (principal); R30.9 Painful micturition, unspecified; E78.5 Hyperlipidemia, unspecified; E55.9 Vitamin D deficiency, unspecified | CPT/HCPCS: 80053; 80061; 81003; 82306; 82607; 84443; 85025; 87077; 87086; 87184 ==

== ENCOUNTER → 2023-08-06 10:50 | Outpatient (BNVA) | payer MEDICARE, MEDICAID, SELFPAY | PROVIDERS: PCP Nurse Practitioner Family; Visit Provider Family Medicine | DX: R30.9 Painful micturition, unspecified (principal) | CPT/HCPCS: 81003; 87086 ==

== ENCOUNTER → 2023-08-13 13:19 | Outpatient (BNVA) | payer MEDICARE, MEDICAID, SELFPAY | PROVIDERS: PCP Nurse Practitioner Family; Visit Provider Nurse Practitioner Family | DX: R30.9 Painful micturition, unspecified (principal) | CPT/HCPCS: 81003; 87086 ==

== ENCOUNTER → 2023-10-23 16:43 | Outpatient (BNVA) | payer MEDICARE, MEDICAID, SELFPAY | PROVIDERS: PCP Nurse Practitioner Family; Visit Provider Nurse Practitioner Family | DX: R10.84 Generalized abdominal pain (principal) | CPT/HCPCS: 81000; 87086 ==

== ENCOUNTER → 2023-12-31 15:31 | Outpatient (BNVA) | payer MEDICARE, MEDICAID, SELFPAY | PROVIDERS: PCP Nurse Practitioner Family; Visit Provider Nurse Practitioner Family | DX: R10.31 Right lower quadrant pain (principal) | CPT/HCPCS: 81000 ==

== ENCOUNTER → 2024-01-01 08:40 | Outpatient (BNVA) | payer MEDICARE, MEDICAID, SELFPAY | PROVIDERS: PCP Nurse Practitioner Family; Visit Provider Nurse Practitioner Family | DX: R10.9 Unspecified abdominal pain (principal) | CPT/HCPCS: 74018 ==

== ENCOUNTER 2024-01-12 13:17 | Outpatient (CLI) | payer MEDICARE, MEDICAID, SELFPAY ==
--- NOTE | 2024-01-12 13:23 | CT_ITS ---
WS: [id number] CT ABDOMEN AND PELVIS WITH CONTRAST HISTORY: RLQ ABD PAIN/ABNORMAL IMAGING, history of colon cancer. TECHNIQUE: Imaging performed of the abdomen and pelvis with IV contrast. Single phase imaging of the abdomen. Coronal and sagittal reformats are submitted. All CT scans at [facility] use at [address] one of these dose optimization techniques: automated exposure control; mA and/or kV adjustment per patient size (includes targeted exams where dose is matched to clinical indication); or iterative re construction. IV CONTRAST: Omnipaque 350; 100 mL IV. Oral contrast: Yes. DLP: 227.83 mGy.cm COMPARISON: 12/24/2021 Lower thorax: Lung bases are clear. Heart is normal size. No hiatal hernia. Liver/biliary system: Normal size with no intrahepatic dilatation. Gallbladder: Status post cholecystectomy. Pancreas: Diffuse atrophy. No mass or pancreatic duct dilatation. Spleen: Normal size spleen. No mass or infarct. Adrenal glands: Normal. Right kidney: Diffuse cortical thinning. No obstruction. Vascular calcifications. No renal obstructio n. Left kidney: Cortical thinning with a few areas of scarring. Central nonobstructing calcifications. Aorta: Moderate atherosclerosis with no aneurysm. Heavy calcification in the thoracic aorta and the m esenteric arteries. Celiac axis may be completely occluded. There is a very high grade stenosis and d ense calcified plaque in the proximal SMA. Lymphadenopathy: None. Free fluid: None. GI tract: Normally distended stomach. No small bowel obstruction. Prior RIGHT colectomy. No obstructi on or recurrent mass near the anastomosis. Abdominal wall: Unremarkable abdominal wall. No hernia. Pelvis: No free fluid or adenopathy within the pelvis. Bones: RIGHT curvature lumbar spine. CT/CT abdomen pelvis w con* [id number] IMPRESSION: 1. Status post RIGHT colectomy. No recurrent obstruction or mass identified. 2. Marked atherosclerosis abdominal aorta and the mesenteric vessels. 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 Similar findings on prior studies. Very heavy dense calcification and/or stent involving the pro ximal SMA. 3. No free fluid and no adenopathy. 4. No metastatic disease to the adrenals or liver. 5. Mild renal atrophy but no obstruction.
[2024-01-12 14:48] LABS: Blood Urea Nitrogen 16 mg/dL (8-23)
[2024-01-12] MEDS: iohexol 350 mg/mL 500 mL Btl (per mL) IV (14:56)
[2024-01-12] MEDS: iohexol 350 mg/mL 500 mL Btl (per mL) PO (14:56)
== END 2024-01-12 13:18 | disposition home or self-care (01) ==
LOC: RAD 13:17
PROVIDERS: PCP Nurse Practitioner Family; Visit Provider Nurse Practitioner Family
DX: R10.31 Right lower quadrant pain (principal); I70.0 Atherosclerosis of aorta; N26.1 Atrophy of kidney (terminal)
CPT/HCPCS: 74177; 82565; 84520; Q9967

== ENCOUNTER → 2024-04-06 14:40 | Outpatient (BNVA) | payer MEDICARE, MEDICAID, SELFPAY | PROVIDERS: PCP Nurse Practitioner Family; Visit Provider Nurse Practitioner Family | DX: R10.31 Right lower quadrant pain (principal) | CPT/HCPCS: 81000 ==

== ENCOUNTER → 2024-04-28 09:46 | Outpatient (BNVA) | payer MEDICARE, MEDICAID, SELFPAY | PROVIDERS: PCP Nurse Practitioner Family; Visit Provider Nurse Practitioner Family | DX: N30.01 Acute cystitis with hematuria (principal) | CPT/HCPCS: 81000; 87086 ==

== ENCOUNTER → 2024-05-05 11:50 | Outpatient (BNVA) | payer MEDICARE, MEDICAID, SELFPAY | PROVIDERS: PCP Nurse Practitioner Family; Visit Provider Nurse Practitioner Family | DX: E53.8 Deficiency of other specified B group vitamins (principal); E78.5 Hyperlipidemia, unspecified; E55.9 Vitamin D deficiency, unspecified; D64.9 Anemia, unspecified | CPT/HCPCS: 80053; 80061; 82306; 82607; 85025 ==

== ENCOUNTER → 2024-10-06 15:16 | Outpatient (BNVA) | payer MEDICARE, MEDICAID, SELFPAY | PROVIDERS: PCP Nurse Practitioner Family; Visit Provider Nurse Practitioner Family | DX: N39.0 Urinary tract infection, site not specified (principal); N30.01 Acute cystitis with hematuria | CPT/HCPCS: 81000; 87077; 87086; 87184 ==

== ENCOUNTER → 2024-10-18 14:47 | Outpatient (BNVA) | payer MEDICARE, MEDICAID, SELFPAY | PROVIDERS: PCP Nurse Practitioner Family; Visit Provider Nurse Practitioner Family | DX: R53.83 Other fatigue (principal) | CPT/HCPCS: 87400; 87426 ==

== ENCOUNTER → 2024-11-15 11:20 | Outpatient (BNVA) | payer MEDICARE, MEDICAID, SELFPAY | PROVIDERS: PCP Nurse Practitioner Family; Visit Provider Nurse Practitioner Family | DX: R30.0 Dysuria (principal) | CPT/HCPCS: 81000; 87077; 87086; 87184 ==

== ENCOUNTER → 2024-12-30 11:30 | Outpatient (BNVA) | payer MEDICARE, MEDICAID, SELFPAY | PROVIDERS: PCP Nurse Practitioner Family; Visit Provider Nurse Practitioner Family | DX: R53.83 Other fatigue (principal); R68.89 Other general symptoms and signs | CPT/HCPCS: 80053; 85025 ==

== ENCOUNTER 2025-01-05 12:54 | Outpatient (RCR) | payer MEDICARE, MEDICAID, SELFPAY | END 2025-01-05 23:59 | disposition home or self-care (01) | LOC: GPT 12:54 | PROVIDERS: PCP Nurse Practitioner Family; Visit Provider Nurse Practitioner Family | DX: M51.362 Other intervertebral disc degeneration, lumbar region with discogenic back pain and lower extremity pain (principal) | CPT/HCPCS: 97162 ==

== ENCOUNTER 2025-01-06 05:00 | Outpatient (RCR) | payer MEDICARE, MEDICAID, SELFPAY | END 2025-02-05 23:59 | disposition home or self-care (01) | LOC: GPT 05:00 | PROVIDERS: PCP Nurse Practitioner Family; Visit Provider Nurse Practitioner Family | DX: M51.362 Other intervertebral disc degeneration, lumbar region with discogenic back pain and lower extremity pain (principal) | CPT/HCPCS: 97110; 97112; 97140 ==

== ENCOUNTER → 2025-01-12 14:10 | Outpatient (BNVA) | payer MEDICARE, MEDICAID, SELFPAY | PROVIDERS: PCP Nurse Practitioner Family; Visit Provider Nurse Practitioner Family | DX: R30.0 Dysuria (principal); N39.0 Urinary tract infection, site not specified | CPT/HCPCS: 81000; 87086 ==

== ENCOUNTER 2025-01-26 14:12 | Outpatient (CLI) | payer MEDICARE, MEDICAID, SELFPAY ==
[2025-01-26] MEDS: iohexol 350 mg/mL 500 mL Btl (per mL) PO (15:53)
[2025-01-26] MEDS: iohexol 350 mg/mL 500 mL Btl (per mL) IV (15:54)
--- NOTE | 2025-01-26 16:00 | CTR_ITS ---
PROCEDURE INFORMATION: Exam: CT Abdomen And Pelvis With Contrast Exam date and time: 01/26/2025 3:46 PM Age: 74 years old Clinical indication: Abdominal pain; Localized; Lower; Prior surgery; Surgery date: 6+ months; Surgery type: Colon, hyst, gb, aaa; HX of colon cancer; Additional info: R10.30 - lower abdominal pain, unspecified TECHNIQUE: Imaging protocol: Computed tomography of the abdomen and pelvis with contrast. Radiation optimization: All CT scans at this facility use at least one of these dose optimization techniques: automated exposure control; mA and/or kV adjustment per patient size (includes targeted exams where dose is matched to clinical indication); or iterative reconstruction. Contrast material: OMNI 350; Contrast volume: 100 ml; Contrast route: INTRAVENOUS (IV); COMPARISON: CT abdomen pelvis w con* [id number] 01/12/2024 2:51 PM RADIATION DOSE METRICS: Total DLP (mGy-cm): 217.66 FINDINGS: Lungs: Lung bases are clear as visualized. Liver: Normal. No mass. Gallbladder and biliary ducts: Normal. No calcified stones. No ductal dilation. Pancreas: Normal. No ductal dilation. Spleen: Normal. No splenomegaly. Adrenal glands: Normal. No mass. Kidneys and ureters: Normal. No hydronephrosis. Stomach and bowel: No bowel mass, obstruction or acute inflammation. Administered enteric contrast transits up to ascending colon. Appendix: No evidence of appendicitis. Intraperitoneal space: No pneumoperitoneum or abscess. Vasculature: Vascular stent in the right external iliac artery, patent. Moderate to severe atherosclerosis of the abdominal aorta and branches. 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 Severe atherosclerosis of the aorta. Stent in the proximal celiac artery is patent. Lymph nodes: Unremarkable. No enlarged lymph nodes. Urinary bladder: [id number] circumferential thickening of the bladder, unchanged, a component of which is due to decompression. Recommend correlation if there is concern for cystitis. Reproductive: Status post hysterectomy. Bilateral adnexae are unremarkable.. Bones/joints: Unremarkable. No acute fracture. Soft tissues: Unremarkable. CT/CT abdomen pelvis w con* [id number] IMPRESSION: No bowel mass, obstruction or acute inflammation.
== END 2025-01-26 14:13 | disposition home or self-care (01) ==
LOC: RAD 14:15
PROVIDERS: PCP Nurse Practitioner Family; Visit Provider Nurse Practitioner Family
DX: R10.30 Lower abdominal pain, unspecified (principal); Z85.038 Personal history of other malignant neoplasm of large intestine; I70.0 Atherosclerosis of aorta; I77.811 Abdominal aortic ectasia; Z95.828 Presence of other vascular implants and grafts; N32.89 Other specified disorders of bladder; Z90.710 Acquired absence of both cervix and uterus
CPT/HCPCS: 74177

== ENCOUNTER 2025-02-06 06:30 | Outpatient (RCR) | payer MEDICARE, MEDICAID, SELFPAY | END 2025-03-07 23:59 | disposition home or self-care (01) | LOC: GPT 06:30 | PROVIDERS: PCP Nurse Practitioner Family; Visit Provider Nurse Practitioner Family | DX: M51.362 Other intervertebral disc degeneration, lumbar region with discogenic back pain and lower extremity pain (principal) | CPT/HCPCS: 97110; 97112; 97164; 97530 ==

== ENCOUNTER → 2025-03-07 09:45 | Outpatient (BNVA) | payer MEDICARE, MEDICAID, SELFPAY | PROVIDERS: PCP Nurse Practitioner Family; Visit Provider Nurse Practitioner Family | DX: D53.9 Nutritional anemia, unspecified (principal); R53.83 Other fatigue; Z86.2 Personal history of diseases of the blood and blood-forming organs and certain disorders involving the immune mechanism | CPT/HCPCS: 80053; 82728; 83550; 85025 ==

== ENCOUNTER → 2025-03-16 13:14 | Outpatient (BNVA) | payer MEDICARE, MEDICAID, SELFPAY | PROVIDERS: PCP Nurse Practitioner Family; Visit Provider Nurse Practitioner Family | DX: N30.01 Acute cystitis with hematuria (principal) | CPT/HCPCS: 81000; 87086 ==

== ENCOUNTER → 2025-04-14 15:47 | Outpatient (BNVA) | payer MEDICARE, MEDICAID, SELFPAY | PROVIDERS: PCP Nurse Practitioner Family; Visit Provider Internal Medicine Cardiovascular Disease | DX: R00.2 Palpitations (principal); E78.2 Mixed hyperlipidemia; I65.23 Occlusion and stenosis of bilateral carotid arteries; I73.9 Peripheral vascular disease, unspecified; Z79.01 Long term (current) use of anticoagulants; Z86.73 Personal history of transient ischemic attack (TIA), and cerebral infarction without residual deficits; R06.09 Other forms of dyspnea; R07.9 Chest pain, unspecified; R55 Syncope and collapse | CPT/HCPCS: 93005; 99204; 99214 ==

== ENCOUNTER → 2025-04-28 13:55 | Outpatient (BNVA) | payer MEDICARE, MEDICAID, SELFPAY | PROVIDERS: PCP Nurse Practitioner Family; Visit Provider Orthopaedic Surgery | DX: M51.362 Other intervertebral disc degeneration, lumbar region with discogenic back pain and lower extremity pain (principal); M41.86 Other forms of scoliosis, lumbar region | CPT/HCPCS: 72110; 99203 ==

== ENCOUNTER 2025-05-19 12:33 | Outpatient (CLI) | payer MEDICARE, MEDICAID, SELFPAY ==
--- NOTE | 2025-05-19 13:00 | MR_ITS ---
WS: [id number] MRI LUMBAR SPINE NONCONTRAST HISTORY: Back Pain COMPARISON: None available. TECHNIQUE: Sagittal and axial multisequence imaging is submitted. Mild increase in cervical lordosis. Central disc protrusion at T1-2 contacts the thoracic cord. Mild RIGHT curvature lumbar spine. No acute lumbar spine fracture. No marrow edema. Disc spaces are mildly narrowed and desiccated. Conus terminates normally at L1. L1-L2: Mild annular disc bulging with facet and ligamentum flavum hypertrophy. No stenosis. L2-L3: Marked annular disc bulging with bilateral foraminal disc protrusions, LEFT greater than RIGHT. There is mild disc encroachment upon the traversing L3 nerve roots. Mild subarticular recess and RIGHT foraminal stenosis. Moderate LEFT foraminal stenosis. L3-L4: Diffuse disc bulging. LEFT paracentral disc protrusion, ligamentum flavum and facet arthritis. Bilateral subarticular recess narrowing, LEFT greater than RIGHT. Mild bilateral foraminal stenosis. L4-L5: Marked diffuse annular disc bulging with ligamentum flavum and facet arthritis. There is mild disc encroachment upon the traversing L5 nerve roots. RIGHT foraminal disc protrusion. Moderate central, subarticular recess and RIGHT foraminal stenosis. L5-S1: Mild annular disc bulge with a central disc protrusion. There is very mild contact on the S1 nerve roots. Severe RIGHT and mild LEFT foraminal stenosis. Shallow RIGHT foraminal disc protrusion. Seen on the sagittal STIR sequence is edema within the sacrum, bilateral. Suspect insufficiency fracture. MR/MR lumbar spine wo con* [id number] IMPRESSION: 1. No acute lumbar spine fracture. 2. Mild RIGHT curvature lumbar spine. 3. L4-5: Moderate central, subarticular recess and RIGHT foraminal stenosis. T here is mild disc contact on the traversing L5 nerve roots. Additional RIGHT fo raminal disc protrusion. 4. L5-S1: Severe RIGHT and mild LEFT foraminal stenosis. Central disc protrusi on. There is mild disc contact on the S1 nerve roots. 5. Bilateral foraminal disc protrusions at L2-3. There is mild disc encroachme nt upon the traversing L3 nerve roots. Moderate LEFT foraminal stenosis. Mild s ubarticular recess and RIGHT foraminal stenosis. 6. L3-4: LEFT paracentral disc protrusion. Bilateral subarticular recess steno sis, LEFT greater than RIGHT and mild foraminal stenosis. 7. Edema bilaterally within the sacrum, suspect sacral insufficiency fracture.
== END 2025-05-19 12:34 | disposition home or self-care (01) ==
LOC: RAD 12:34
PROVIDERS: PCP Nurse Practitioner Family; Visit Provider Orthopaedic Surgery
DX: R06.02 Shortness of breath (principal); M47.896 Other spondylosis, lumbar region; M51.370 Other intervertebral disc degeneration, lumbosacral region with discogenic back pain only; M48.07 Spinal stenosis, lumbosacral region
CPT/HCPCS: 72148

== ENCOUNTER → 2025-06-01 13:15 | Outpatient (BNVA) | payer MEDICARE, MEDICAID, SELFPAY | PROVIDERS: PCP Nurse Practitioner Family; Visit Provider Nurse Practitioner Family | DX: N39.0 Urinary tract infection, site not specified (principal) | CPT/HCPCS: 81000; 87086 ==

== ENCOUNTER 2025-06-28 12:25 | Outpatient (CLI) | payer MEDICARE, MEDICAID, SELFPAY ==
--- NOTE | 2025-06-28 12:45 | USCV_ITS ---
Angela Fontana Age: 75 Gender: F : 1950 Exam Date: 06/28/2025 12:38 Ordering Phys: Hanna Alvarez MD ([email or web address]) Technologist: Exam Location: [facility] [place] Indication: cp murmurs BP: 125 / 70 HR: 56 Rhythm: Sinus Technical Quality: Adequate MEASUREMENTS (Male / Female) Normal Values 2D ECHO LV Diastolic Diameter PLAX 3.2 cm 4.2 - 5.9 / 3.9 - 5.3 cm IVS Diastolic Thickness 1.2 cm 0.6 - 1.0 / 0.6 - 0.9 cm IVS Systolic Thickness 1.6 cm LVPW Diastolic Thickness 1.1 cm 0.6 - 1.0 / 0.6 - 0.9 cm LVPW Systolic Thickness 1.3 cm LVOT Diameter 2.0 cm LV Ejection Fraction 2D Teich 65.1 % LV Ejection Fraction MOD 4C 61.6 % LV Ejection Fraction MOD 2C 55.3 % LV Ejection Fraction 2C AL 56.0 % LA Diameter 2.9 cm RA Systolic Volume 4C AL 21.1 ml RA Systolic Volume 4C MOD 19.8 ml LA Sys Volume AL 28.4 cm cubed LA Sys Volume Index AL 20.1 cm cubed/m squared Aorta at Sinotubular Diameter 2.5 cm IVC Diameter 0.7 cm M-MODE LA Ao Ratio MM 1.2 AV Cusp Separation MM 2.0 cm DOPPLER AV Peak Velocity 111.0 cm/s LVOT Peak Velocity 75.0 cm/s AV Area Cont Eq vti 2.4 cm squared AV Area Cont Eq pk 2.2 cm squared MV Peak Velocity 75.0 cm/s MV Area PHT 3.0 cm squared Mitral E to A Ratio 1.2 TV Peak Velocity 224.0 cm/s TR Peak Velocity 233.0 cm/s TR Peak Gradient 21.7 mmHg TV Peak E Velocity 84.0 cm/s PV Peak Velocity 79.0 cm/s FINDINGS Left Ventricle Normal left ventricular size and systolic function, EF 56%. No regional wall motion abnormalities. Mild concentric left ventricular hypertrophy.Grade I/IV diastolic dysfunction (abnormal relaxation filling pattern), normal to mildly elevated filling pressures. Right Ventricle Normal right ventricular size and systolic function. Right Atrium Normal right atrial size. Left Atrium Normal left atrial size. IA Septum Normal appearance of the interatrial septum. Mitral Valve Trace to mild mitral valve regurgitation. Aortic Valve No gross abnormalities noted Tricuspid Valve Trace tricuspid valve regurgitation. Pulmonic Valve Pulmonic valve not well visualized. Pericardium No pericardial effusion. Aorta Normal aortic annulus size. IVC Normal inferior vena cava. CONCLUSIONS Normal left ventricular size and systolic function, EF 56%. No regional wall motion abnormalities. Mild concentric left ventricular hypertrophy.Grade I/IV diastolic dysfunction (abnormal relaxation filling pattern), normal to mildly elevated filling pressures. Trace to mild mitral valve regurgitation. Trace tricuspid valve regurgitation. Estimated pulmonary artery peak systolic pressure 24 mmHg There is no pericardial effusion. There are no intracardiac masses. No similar previous studies are available for comparison Dr Hanna Alvarez MD [facility] (Electronically Signed) Final Date: 02 July 2025 13:17 S
== END 2025-06-28 12:26 | disposition home or self-care (01) ==
LOC: RAD 12:26
PROVIDERS: PCP Nurse Practitioner Family; Visit Provider Internal Medicine Cardiovascular Disease
DX: R06.09 Other forms of dyspnea (principal); M54.9 Dorsalgia, unspecified; R01.1 Cardiac murmur, unspecified; R07.9 Chest pain, unspecified; I51.89 Other ill-defined heart diseases; I34.0 Nonrheumatic mitral (valve) insufficiency; I36.1 Nonrheumatic tricuspid (valve) insufficiency
CPT/HCPCS: 93306

== ENCOUNTER → 2025-08-10 14:00 | Outpatient (BNVA) | payer MEDICARE, MEDICAID, SELFPAY | PROVIDERS: PCP Nurse Practitioner Family; Visit Provider Nurse Practitioner Family | DX: R30.0 Dysuria (principal); N30.01 Acute cystitis with hematuria | CPT/HCPCS: 81000; 87086 ==